=== PATIENT | male | born 1940 | race Caucasian/White ===

== ENCOUNTER 2020-08-28 07:08 | Outpatient (REF) | payer MEDICARE, SELFPAY ==
[2020-08-28 08:59] LABS: Prostate Specific Antigen 1.87 ng/mL (<0.05-4.0)
== END 2020-08-28 07:09 | disposition home or self-care (01) ==
LOC: HO.LAB 07:08
PROVIDERS: Visit Provider Urology
DX: C61 Malignant neoplasm of prostate (principal); Z12.5 Encounter for screening for malignant neoplasm of prostate
CPT/HCPCS: 84153

== ENCOUNTER → 2020-09-03 09:18 | Outpatient (BNVA) | payer MEDICARE, SELFPAY | PROVIDERS: PCP Internal Medicine; Visit Provider Urology | DX: N40.1 Benign prostatic hyperplasia with lower urinary tract symptoms (principal); N13.8 Other obstructive and reflux uropathy; R35.1 Nocturia; C61 Malignant neoplasm of prostate | CPT/HCPCS: 51798; 81002; 99212 ==

== ENCOUNTER 2020-12-16 07:20 | Outpatient (REF) | payer MEDICARE, SELFPAY ==
[2020-12-16 08:14] LABS: Hematocrit 43.4 % (42-52); Hemoglobin 14.2 g/dl (14.0-18.0); Mean Corpuscular HGB Conc 32.7 g/dl (31.0-36.0); Mean Corpuscular Hemoglobin 31.1 pg (27.0-33.0); Mean Corpuscular Volume 95.2 fL (80-98); Mean Platelet Volume 10.4 fL (9.4-12.4); Platelet Count 202 X10*3/uL (160-400); Red Blood Count 4.56 X10*6/uL (4.60-5.80); Red Cell Distribution Width 13.6 % (11.0-16.0); White Blood Count 5.4 X10*3/uL (4.8-10.8)
[2020-12-16 08:44] LABS: Alanine Aminotransferase 14 U/L (0-40); Alkaline Phosphatase 74 U/L (39-117); Anion Gap 12 (12-20); Aspartate Amino Transferase 20 U/L (5-37); Bilirubin Direct 0.2 mg/dL (0.0-0.5); Bilirubin Total 0.7 mg/dL (0.0-1.0); Blood Urea Nitrogen 23 mg/dL (9-16); Calcium 9.1 mg/dL (8.4-10.2); Carbon Dioxide 30 mmol/L (22-29); Chloride 104 mmol/L (96-108); Cholesterol 269 mg/dL; Estimated Glomerular Filt Rate 55; Glucose Random 79 mg/dL (60-115); HDL Cholesterol 37 mg/dL; LDL Cholesterol Calculated 202 mg/dl; Sodium 142 mmol/L (135-145); Total Protein 7.1 g/dL (6.5-8.0); Triglycerides 151 mg/dL
== END 2020-12-16 07:21 | disposition home or self-care (01) ==
LOC: HO.LAB 07:20
PROVIDERS: PCP Internal Medicine; Visit Provider Internal Medicine
DX: E78.00 Pure hypercholesterolemia, unspecified (principal); R97.20 Elevated prostate specific antigen [PSA]
CPT/HCPCS: 36415; 80048; 80061; 80076; 85027

== ENCOUNTER 2021-01-25 09:51 | Outpatient (REF) | payer MEDICARE, SELFPAY ==
[2021-01-25 11:38] LABS: PSA,Total (Free>4and<10) 1.34 ng/mL (0.00-4.00)
== END 2021-01-25 09:52 | disposition home or self-care (01) ==
LOC: HO.LAB 09:51
PROVIDERS: PCP Internal Medicine; Visit Provider Urology
DX: Z12.5 Encounter for screening for malignant neoplasm of prostate (principal); C61 Malignant neoplasm of prostate; N40.1 Benign prostatic hyperplasia with lower urinary tract symptoms; N13.8 Other obstructive and reflux uropathy
CPT/HCPCS: 36415; 84153

== ENCOUNTER → 2021-03-03 14:57 | Outpatient (BNVA) | payer MEDICARE, SELFPAY | PROVIDERS: Visit Provider Urology | DX: Z13.89 Encounter for screening for other disorder (principal) | CPT/HCPCS: Q3014 ==

== ENCOUNTER 2021-06-08 10:51 | Outpatient (REF) | payer MEDICARE, SELFPAY | END 2021-06-08 10:52 | disposition home or self-care (01) | LOC: HO.LAB 10:51 | PROVIDERS: PCP Internal Medicine; Visit Provider Internal Medicine | DX: R10.9 Unspecified abdominal pain (principal) | CPT/HCPCS: 80076 ==

== ENCOUNTER 2021-11-17 06:22 | Outpatient (REF) | payer MEDICARE, SELFPAY ==
[2021-11-17 08:20] LABS: Prostate Specific Antigen 1.93 ng/mL (<0.05-4.0)
== END 2021-11-17 06:23 | disposition home or self-care (01) ==
LOC: HO.LAB 06:22
PROVIDERS: PCP Family Medicine; Visit Provider Urology
DX: Z12.5 Encounter for screening for malignant neoplasm of prostate (principal); N40.1 Benign prostatic hyperplasia with lower urinary tract symptoms; N13.8 Other obstructive and reflux uropathy
CPT/HCPCS: 36415; 84153

== ENCOUNTER → 2021-11-23 07:10 | Outpatient (REF) | payer MEDICARE, SELFPAY ==
--- NOTE | 2021-11-23 07:14 | CA_ITS ---
Transthoracic Echocardiogram Patient (Last, First, Middle): Tim Gallagher, Gender: Male Date of : 1940 Age: 81 Procedure Date: 11/23/2021 Procedure Type: Transthoracic Echocardiogram Location: OP Height: 172.72 cm Weight: 93.44 kg BSA: 2.07 m2 Heart Rate: bpm BP: 134 / 86 mmHg Utilization Management Manager: ARMAND Referring MD: Ana Phillip MD Symptoms: CARDIAC MURMUR Study Quality: Technically Difficult Conclusions: - 1. Normal LV systolic function with mild LVH with grade 1 diastolic dysfunction with underlying regional wall motion abnormality suggestive of coronary artery disease 2. Mild aortic stenosis 3. Normal RV systolic pressure 4. No gross pericardial effusion Findings Left Ventricle Normal left ventricular size and systolic function. There is mildly increased left ventricular wall thickness. The visually estimated ejection fraction is between 55-60%. Spectral Doppler is indicative of an impaired relaxation filling pattern. E/E prime ratio is <8, consistent with normal filling pressures. Evidence suggests grade I (mild) diastolic dysfunction. Wall Motion Rest Echo Findings The basal inferolateral segment is hypokinetic. The basal inferior segment is akinetic. All other scored wall segments showed normal motion. Right Ventricle Normal right ventricular cavity size and systolic function. Atria The left atrium is likely dilated. There is no evidence of interatrial shunt. The right atrium is normal in size. Aortic Valve There is mild calcification of the aortic valve. There is mild thickening of the aortic valve. There is mild aortic valve stenosis. The peak aortic gradient is 18 mmHg.The mean gradient is 10 mmHg. The aortic valve area is 1.60 cm2. There is no aortic valve regurgitation. Mitral Valve There is mild anterior mitral leaflet thickening. There is trace mitral valve regurgitation. There is no mitral valve stenosis. Tricuspid Valve The tricuspid valve was not well visualized. There is mild tricuspid valve regurgitation. The right ventricular systolic pressure is normal. The right ventricular systolic pressure is 27 mmHg. There is no evidence of pulmonary hypertension. Great Vessels All visible segments of the aorta are normal in size. The pulmonary artery was not well visualized. Venous The inferior vena cava is normal in size and collapses greater than 50% with inspiration. Pericardium/Pleural There is no evidence of pericardial effusion. Prior Study Comparison No prior study available for comparison. Measurements 2D Linear Measurements IVSd: 1.28 0.6-0.9/0.6-1.0 cm LVIDd: 4.85 3.9-5.3/4.2-5.9 cm LVIDd Index: 2.34 2.4-3.2/2.2-3.1 cm/m2 LVIDs: 3.87 2.0-3.6 cm LVPWd: 1.00 0.7-1.1 cm Ao Root: 3.90 2.1-3.5 cm LA Diam: 3.80 2.7-3.8/3.0-4.0 cm LAIDs Index: 1.84 1.5-2.3 cm/m2 LV Mass: 258.32 67-162/88-224 g LV Mass Index: 124.79 43-95/49-115 g/m2 LVOT Diam: 2.10 3.0+(-)1.3 cm 2D Systolic Function EF 4C: 57.30 >55% EF 2C: 52.00 >55% EF BiP: 55.20 >55% Mitral Valve MV Pk E: 0.35 MV PK A: 0.91 MV Decel Time: 209.00 E/A: 0.40 E'Lateral: 5.98 E'Medial: 5.55 E/E' Med: 6.30 E/E' Lat: 5.90 PHT: 61.00 MVA PHT: 3.61 Decel Flagler: 1.68 Aortic Valve AoV Pk Ayden: 2.10 AoV Mn Ayden: 1.52 AoV VTI: 0.44 AoV Pk Grad: 18.00 Aov Mn Grad: 10.00 ANATOLIY Cont.VTI: 1.60 LVOT LVOT Pk Ayden: 0.89 LVOT Mn Ayden: 0.66 LVOT VTI: 0.20 LVOT Pk Grad: 3.00 LVOT Mn Grad: 2.00 LVOT Diam: 2.10 LVOT Area: 3.46 Diastolic Function MV Pk E: 0.35 MV Pk A: 0.91 E/A: 0.40 E'Medial: 5.55 E/E' Med: 6.30 E' Laterial: 5.98 E/E' Lat: 5.90 Right Ventricle TAPSE (mm): 24.00 TVS' Ayden: 12.20 Tricuspid Valve TR Pk Ayden: 2.45 TR Pk Grad: 24.00 RA Press: 3.00 RVSP: 27.00 Great Vessels Aorta Ao Root-2D: 3.90 2.0-3.7 cm Ao Asc: 3.60 2.1-3.4 cm Updated in Other Vendor System with Status of Final Sage Moreira MD electronically signed on 11/23/2021 4:05:25 PM with status of Final
== END ==
LOC: HO.CARD 07:10
PROVIDERS: PCP Family Medicine; Visit Provider Family Medicine
DX: R01.1 Cardiac murmur, unspecified (principal)
CPT/HCPCS: 93306

== ENCOUNTER → 2021-11-26 08:28 | Outpatient (BNVA) | payer MEDICARE, SELFPAY | PROVIDERS: PCP Family Medicine; Visit Provider Urology | DX: Z13.89 Encounter for screening for other disorder (principal) | CPT/HCPCS: Q3014 ==

== ENCOUNTER 2022-03-22 13:04 | Outpatient (REF) | payer OTHER, SELFPAY ==
[2022-03-22 14:09] LABS: Blood Urea Nitrogen 24 mg/dL (9-16); Estimated Glomerular Filt Rate 51
== END 2022-03-22 13:05 | disposition home or self-care (01) ==
LOC: HO.LAB 13:04
PROVIDERS: PCP Family Medicine; Visit Provider Urology
DX: Z12.5 Encounter for screening for malignant neoplasm of prostate (principal); C61 Malignant neoplasm of prostate
CPT/HCPCS: 36415; 82565; 84153; 84520

== ENCOUNTER → 2022-03-29 10:53 | Outpatient (BNVA) | payer OTHER, SELFPAY | PROVIDERS: PCP Family Medicine; Visit Provider Urology | DX: C61 Malignant neoplasm of prostate (principal); N40.1 Benign prostatic hyperplasia with lower urinary tract symptoms | CPT/HCPCS: 99212 ==

== ENCOUNTER 2022-08-04 07:17 | Outpatient (REF) | payer OTHER, SELFPAY ==
[2022-08-04 08:11] LABS: Appearance Urine Clear; Color Urine Yellow; Glucose Urine UA Negative (Negative); Leukocyte Esterase Urine Negative (Negative); Nitrite Urine Negative (Negative); Urine Blood Negative (Negative); Urine Ketones Negative (Negative); Urine Protein Negative (Neg-Trace)
[2022-08-04 08:13] LABS: Bacteria Urine None Seen (None Seen); Hyaline Casts Urine 0-2 /LPF (0-2); RBC Urine 0-2 /HPF (0-2); Squamous Epithelial Cell Urine 0-2 /HPF (0-2); WBC Urine 0-5 /HPF (0-5)
== END 2022-08-04 07:18 | disposition home or self-care (01) ==
LOC: HO.LAB 07:17
PROVIDERS: PCP Family Medicine; Visit Provider Urology
DX: N40.1 Benign prostatic hyperplasia with lower urinary tract symptoms (principal)
CPT/HCPCS: 81001; 87086

== ENCOUNTER 2022-09-30 06:44 | Outpatient (REF) | payer OTHER, SELFPAY ==
[2022-09-30 08:24] LABS: PSA,Total (Free>4and<10) 1.71 ng/mL (0.00-4.00)
== END 2022-09-30 06:45 | disposition home or self-care (01) ==
LOC: HO.LAB 06:44
PROVIDERS: PCP Family Medicine; Visit Provider Urology
DX: Z12.5 Encounter for screening for malignant neoplasm of prostate (principal); C61 Malignant neoplasm of prostate; N13.8 Other obstructive and reflux uropathy; N40.1 Benign prostatic hyperplasia with lower urinary tract symptoms
CPT/HCPCS: 36415; 84153

== ENCOUNTER → 2022-10-19 08:23 | Outpatient (BNVA) | payer OTHER, SELFPAY | PROVIDERS: PCP Family Medicine; Visit Provider Urology | DX: N40.0 Benign prostatic hyperplasia without lower urinary tract symptoms (principal); C61 Malignant neoplasm of prostate; Z79.899 Other long term (current) drug therapy | CPT/HCPCS: 51798; 99212 ==

== ENCOUNTER → 2023-01-24 13:04 | Outpatient (BNVA) | payer OTHER, SELFPAY | PROVIDERS: PCP Family Medicine; Visit Provider Urology | DX: N40.1 Benign prostatic hyperplasia with lower urinary tract symptoms (principal); C61 Malignant neoplasm of prostate | CPT/HCPCS: 52000; 99212 ==

== ENCOUNTER → 2023-01-25 07:36 | Outpatient (REF) | payer OTHER, SELFPAY | LOC: HO.CARD 07:36 | PROVIDERS: PCP Family Medicine; Visit Provider Family Medicine | DX: R42 Dizziness and giddiness (principal) | CPT/HCPCS: 93225 ==

== ENCOUNTER 2023-02-17 10:45 | Outpatient (REF) | payer OTHER, SELFPAY ==
--- NOTE | ~2023-02-17 | MR_ITS ---
EXAMINATION: MR BRAIN WITHOUT CONTRAST CLINICAL INFORMATION: Frequent dizzy spells. Affects daily living. Rule out intracranial pathology. COMPARISON: None available. TECHNIQUE: Multiplanar, multisequence imaging of the brain was performed without intravenous contrast. FINDINGS: There is no acute infarction, hemorrhage, mass, or extra-axial fluid collection. A small focus of subacute infarction is seen within the left frontal lobe. Moderate patchy foci of T2/FLAIR hyperintensity are seen within the cerebral white matter, typical of chronic microangiopathy. The ventricles and sulci are commensurate with mild degree of diffuse brain parenchymal volume loss. The major arterial flow voids are preserved at the skull base. There are bilateral lens replacements. MR/MR head/brain wo con IMPRESSION: No acute intracranial abnormality. Small focus of subacute infarction in the left frontal lobe. Background changes of moderate chronic microangiopathy.
== END 2023-02-17 10:46 | disposition home or self-care (01) ==
LOC: HO.MRI 10:45
PROVIDERS: PCP Family Medicine; Visit Provider Family Medicine
DX: R42 Dizziness and giddiness (principal)
CPT/HCPCS: 70551

== ENCOUNTER 2023-04-24 05:55 | Day surgery (SDC) | payer OTHER, SELFPAY ==
[2023-04-20 14:40] VITALS: BMI 32.3
--- NOTE | 2023-04-21 09:35 | P.CONAN_ITS ---
Documented by User: Sana Her NP 04/21/23 09:36 HPI - Anesthesia Eval Consult details Narrative: 82yo M for Laser Ablation Prostate w/Green Light PMFSH Active Problems Active Problems: All Active Problems (Updated 04/20/23 @ 14:44 by Yaquelin Wolff RN) Elevated PSA (Acute) BPH loc w urin obs/LUTS (Acute) Nocturia more than twice per night (Acute) Prostate cancer (Acute) Abdominal pain (Acute) Chronic pain syndrome (Acute) Hypercholesterolemia (Acute) Past Medical History Medical History Asthma Back pain Chronic pain syndrome Glucosuria History of renal calculi Hx of glaucoma Hypercholesterolemia Incomplete emptying of bladder Low back pain Prostate cancer Recurrent UTI Use of cane as ambulatory aid Wears dentures Family History Family History Mother No problems noted. Father No problems noted. Surgical History Surgical History History of lithotripsy Hx of bilateral cataract extraction Hx of colonoscopy Social History Social History Housing: House Are you a primary life care planner to a significant other at home: No Do you presently have visiting nurse or other home services: Yes ([employer] 5 pm-7 pm, VNA 1 x month) Alcohol intake: never Patient Tobacco Use Status: Former Tobacco user Quit Date: 1999 Tobacco use type: Cigarette Use of substances other than those prescribed or required for medical reasons: No Are you DNR?: No Advance Directives: No Advance Directives Information Provided: Yes Advance Directives on File: No Recently lost weight without trying: No Nutrition Risks: Surgical patient >75years service: Yes Current occupational status: retired Meds Allergies Allergy/AdvReac Type Severity Reaction Status Date / Time No Known Allergies Allergy Verified 04/20/23 14:33 [No Known Allergies*] Home Medications Medication Instructions Recorded Confirmed Last Taken Type brimonidine 0.2 % eye drops 1 drp ophthalmic-Right BID 09/03/20 04/20/23 Unknown History albuterol sulfate 90 mcg/actuation 2 puff inhalation Q6-8H PRN 03/08/21 04/20/23 Unknown History aerosol inhaler Shortness Of Breath Or Wheezing aspirin 81 mg chewable tablet 1 tab PO DAILY 03/29/22 04/20/23 Unknown History atorvastatin 80 mg tablet 80 mg PO DAILY 04/20/23 04/20/23 Unknown History sacubitril 24 mg-valsartan 26 mg 1 tab PO BID 04/20/23 04/20/23 Unknown History tablet (Entresto) tramadol 50 mg tablet 50 mg PO TID PRN Pain 04/20/23 04/20/23 Unknown History Exam Exam Date and Time: April 21, 2023 0935 Height,Weight and Vital Signs: Height 5 ft 6 in Weight 90.718 kg Assessment and Plan Assessment Anesthesia Assessment: Chart Reviewed Documented by User: Juan Horton MD 04/24/23 08:14 [facility] Past Medical History Medical History Asthma Back pain Chronic pain syndrome Glucosuria History of renal calculi Hx of glaucoma Hypercholesterolemia Incomplete emptying of bladder Low back pain Prostate cancer Recurrent UTI Use of cane as ambulatory aid Wears dentures Narrative: Echo 01/2023 mild global hypok, ef 40%. mild ddx, mild . RV is OK, PAP normal. IVC nl. On Entresto. Nuclear stress 04/20 negative EKG, probably normal perfusion. Family History Family History Mother No problems noted. Father No problems noted. Family history of problems with anesthesia: No Surgical History Surgical History History of lithotripsy Hx of bilateral cataract extraction Hx of colonoscopy History of Problems with Anesthesia: No Social History Social History Housing: House Are you a primary life care planner to a significant other at home: No Do you presently have visiting nurse or other home services: Yes ([employer] 5 pm-7 pm, VNA 1 x month) Alcohol intake: never Patient Tobacco Use Status: Former Tobacco user Quit Date: 1999 Tobacco use type: Cigarette Use of substances other than those prescribed or required for medical reasons: No Are you DNR?: No Advance Directives: No Advance Directives Information Provided: Yes Advance Directives on File: No Recently lost weight without trying: No Nutrition Risks: Surgical patient >75years service: Yes Current occupational status: retired [employer] Allergies Allergy/AdvReac Type Severity Reaction Status Date / Time No Known Allergies Allergy Verified 04/20/23 14:33 [No Known Allergies*] Home Medications Medication Instructions Recorded Confirmed Last Taken Type brimonidine 0.2 % eye drops 1 drp ophthalmic-Right BID 09/03/20 04/20/23 Unknown History albuterol sulfate 90 mcg/actuation 2 puff inhalation Q6-8H PRN 03/08/21 04/20/23 Unknown History aerosol inhaler Shortness Of Breath Or Wheezing aspirin 81 mg chewable tablet 1 tab PO DAILY 03/29/22 04/20/23 Unknown History atorvastatin 80 mg tablet 80 mg PO DAILY 04/20/23 04/20/23 Unknown History sacubitril 24 mg-valsartan 26 mg 1 tab PO BID 04/20/23 04/20/23 Unknown History tablet (Entresto) tramadol 50 mg tablet 50 mg PO TID PRN Pain 04/20/23 04/20/23 Unknown History Exam Airway Mallampati Class: II TM Dist: >3cm Denture: Upper Partial: Lower Heart: OK. See above. Lungs: OK Assessment and Plan Assessment Anesthesia Assessment: Anesthesia Plan Discussed Final Anesthetic Review Family History of Problems with Anesthesia: No History of Problems with Anesthesia: No NPO: Yes ASA Class: IV Final Preanesthetic Review: No Changes in Pt Med Stat, Meds/Allgs Chart Reviewed, Consent Obtained/Reviewed and Anes Risks/Benef Reviewed Patient Risk: High Procedure Risk: Low Anesthetic Plan Anesthetic Plan: GA and Agree w/ Assess. and Plan Disposition: Standard PACU
[2023-04-24] VITALS (10 sets, daily range): BP systolic 119–185; BP diastolic 72–101; PULSE 62–84; RESP 16–20; TEMP 36.1–36.7; O2SAT 95–98
[2023-04-24] MEDS: Lactated Ringers 1,000 ML 100 ML IVCONT (06:30)
--- NOTE | 2023-04-24 08:58 | P.OP_ITS ---
Operative Note Operative Note Date of Service: 04/24/23 Narrative: PreOperative Diagnosis: Bladder outlet obstruction Post Operative Diagnosis: Bladder outlet obstruction Procedure: GreenLight Laser Enucleation of the prostate Surgeon: Dr Ricky Wilkerson Anesthesia: General Indications for procedure: BPH with symptoms History of bladder outlet obstruction. Treated with alpha-landen and other medications. Still with symptoms. On cystoscopy in office has [trilobar prostate] [tight bladder neck]. Recommen dation for prostate procedure with laser enucleation of prostate. Risks and benefits have been discussed. Focus was placed on development of retrograde ejaculation which is a normal part of this procedure. Procedure: After informed consent was verified the patient was brought to the operating room and placed in a supine position. Anesthesia was administered per protocol. Patient was placed in modified dorsal lithotomy position and prepped and draped in a sterile fashion. Safety pause time-out was confirmed. Antibiotics have been given. A Twenty-four Polish laser cystoscope was inserted per urethra. No abnormalities were found of the anterior and bulbar urethra. The bladder was examined and both ureteric orifices were seen in their normal positions away from the area of interest. Using a GreenLight laser with settings of 80 w incisions were made at the 5 and 7 o'clock position. The incisions were taken down from the bladder neck down to the level of the veru. These were gradually deepened in order to define the lateral aspects of the median lobe area. Once clearly defined they will also extended in the lateral directions in order to create a deep groove. The median lobe was then divided in half and enucleated coming from each side to release tissue into the bladder with the laser power increased to 120 W. He had a Very large median lobe. Consecutive slices were taken running from lateral to medial in order to release the tissue. Knee this took approximately 45 minutes. When completed It appeared that he had minimal lateral lobe impingement. When this was had been completed debris and pieces of prostate were removed from the bladder with irrigation. Both ureteric orifices were reviewed again in shown to be patent in away from any areas of energy damage. The apical area was reviewed in any stray ooze was controlled. A 22 Polish 30 cc balloon Barriga catheter was placed over a stylet into the bladder. Clear efflux was obtained upopn irrigation with a Stephanie piston syringe. 30 cc was placed in the balloon and gentle traction was placed. A snap was used to hold tension on the catheter to control bleeding during patient moved and transported. A drainage bag was placed. Once transportation is complete to the PACU the snap will be removed. The patient tolerated the procedure well, he was extubated in the operating and transferred in a stable condition to the recovery area. Total Power 202 kW Lasing time 27:14 Pathology: Prostate tissue Drains: Barriga catheter
[2023-04-24] MEDS: fentaNYL citrate/PF 100 MCG/2 ML VIAL 50 MCG IVPUSH (09:20)
[2023-04-24] MEDS: oxyCODONE HCl Immed Release 5 MG TABLET PO (09:20)
--- NOTE | 2023-04-24 09:26 | MHC.SHP ---
Pre-Procedural Eval Section A Date of Service: 04/24/23 The patient is an INPATIENT: No Changes since office visit: No Cold of Flu in the past 2 weeks, No New Medical Problems, No Changes in Medication and No Patient answered all questions The History & Physical has been completed within 30 days and I have reviewed it.: No Section B Chief Complaint: Benign prostatic hyperplasia with lower urinary Details of Present Illness: BPH progressive Relevant Social History: None Present Medications: see Short Stay Collaborative assessment Medical History: No relevant PMH History of Previous Operations: No relevant previous surgery Allergies: Allergies Allergy/AdvReac Type Severity Reaction Status Date / Time No Known Allergies Allergy Verified 04/20/23 14:33 [No Known Allergies*] Review of Systems Sugical H&P ROS: Negative: Constitution, Cardiovascular, Respiratory, Neurological, Psychiatric, Hem-Onc, Allergic/Immunologic, Gastrointestinal, Genitourinary, Musculoskeletal, Integumentary, Endocrine and Eyes/Ears/Nose/Throat Exam Surgical H&P Exam: Normal: HEENT, Normal: Heart, Normal: Lungs, Normal: Extremities, Normal: Abdomen, Normal: Skin and Normal: Neurological Plan Diagnosis/Plan: Unchanged ( laser enucleation of the prostate) I have reviewed the history and physical and performed a pertinent physical examination on my patient. No changes have occurred unless specified. Time Spent With Patient Time: Total time managing care of this patient today ____ minutes.
== END 2023-04-24 11:15 | disposition home or self-care (01) ==
PROVIDERS: PCP Family Medicine; Visit Provider Urology
PROC: (CPT 52648; principal; 2023-04-24 07:30)
DX: N40.1 Benign prostatic hyperplasia with lower urinary tract symptoms (principal); N32.0 Bladder-neck obstruction; R35.1 Nocturia; C61 Malignant neoplasm of prostate; R33.9 Retention of urine, unspecified; R81 Glycosuria; G89.4 Chronic pain syndrome; M54.9 Dorsalgia, unspecified; E78.00 Pure hypercholesterolemia, unspecified; J45.909 Unspecified asthma, uncomplicated; Z79.51 Long term (current) use of inhaled steroids; Z79.899 Other long term (current) drug therapy; Z79.82 Long term (current) use of aspirin; Z99.89 Dependence on other enabling machines and devices; Z87.442 Personal history of urinary calculi; Z87.891 Personal history of nicotine dependence
CPT/HCPCS: 52649; 88305; J0131; J1956; J3010

== ENCOUNTER → 2023-04-27 09:28 | Outpatient (BNVA) | payer OTHER, SELFPAY | PROVIDERS: Visit Provider Urology | DX: N40.0 Benign prostatic hyperplasia without lower urinary tract symptoms (principal); R97.20 Elevated prostate specific antigen [PSA] | CPT/HCPCS: 51700 ==

== ENCOUNTER 2023-06-09 08:39 | Outpatient (REF) | payer OTHER, SELFPAY ==
[2023-06-09 10:28] LABS: Prostate Specific Antigen 1.02 ng/mL (<0.05-4.0)
== END 2023-06-09 08:40 | disposition home or self-care (01) ==
LOC: HO.LAB 08:39
PROVIDERS: PCP Family Medicine; Visit Provider Urology
DX: C61 Malignant neoplasm of prostate (principal); Z12.5 Encounter for screening for malignant neoplasm of prostate
CPT/HCPCS: 36415; 84153

== ENCOUNTER 2023-06-16 09:00 | Outpatient (AMB) | payer OTHER, SELFPAY ==
--- NOTE | 2023-06-16 09:01 | MHC.OFFVIS ---
Intake Intake Visit Reasons: 6W PSA/PVR(set) Intake Note: Patient is present for Telephone PSA Follow up Urology Med: Finasteride, Antibiotic Allergy: None Blood Thinner: Aspirin Pharmacy: [facility] Allergies No Known Allergies [No Known Allergies*] Allergy (Verified 06/16/23 09:01) Medication List - Last Reconciled 06/16/23 by Ricky Wilkerson MD albuterol sulfate 90 mcg/actuation 2 puffs inhalation Q6-8H PRN aspirin 1 tab PO DAILY atorvastatin 80 mg PO DAILY brimonidine 0.2% 1 drp ophthalmic-Right BID finasteride 5 mg PO DAILY 90 days fluticasone propionate 250 mcg/actuation (Flovent Diskus) 1 inh PO BID food supplemt, lactose-reduced (Ensure oral liquid) 1 ea PO TID 30 days miscellaneous medical supply 1 ea miscellaneous DIRECTED miscellaneous medical supply 1 ea miscellaneous DIRECTED miscellaneous medical supply 1 ea miscellaneous DIRECTED omeprazole 40 mg PO DAILY sacubitril-valsartan 24-26 mg (Entresto) 1 tab PO BID tramadol 50 mg PO TID PRN HPI HPI Comments History of Present Illness Details Tim is a pleasant male. He is a patient of Dr. Garnica. is here for the following urologic conditions - BPH - prostate cancer Telemedicine Evaluation 15 min Consultation [employer] T[employer] Video attempted Accompanied by daughter who is translating for him Six week follow-up from GreenLight laser PSA 06/21 1.0 Good urination Continue 6 month review Lower Urinary Tract Symptoms: Review in 6m Current visit is for further evaluation of, lower urinary tract symptoms, predominate obstructive symptoms Current treatment includes finasteride 5 mg - 04/21 GreenLight laser Prostate cancer: April 2018 low-grade, low volume disease Prostate cancer was diagnosed in [place] 05/16. Diagnosis was reached by needle biopsy, for elevated PSA. The Maritza grade is April 2018 2/12 cores , 3+3 = 6 20% in each core. TNM Classification of Malignant Tumours (TNM) T1c. The D'Reyna (NCCN) risk category is Low Risk (PSA< 10, Gl < 7, T1c) Imaging - 01/18 MRI total volume 85 cc, left mid transition 1.5 cm PI-RADS 4 lesion, capsule intact Initial therapy included Primary treatment, Deferred Therapy (active surveillance) with finasteride Recent labs included 03/17 2.0, 09/17 1.5 01/16 3.2, 08/18 1.9, 01/17 1.3, 11/20 1.9, 04/20 1.1, 10/20 1.7 Therapeutic plan: Continue with surveillance. [facility] Medical History Asthma Back pain Chronic pain syndrome Glucosuria History of renal calculi Hx of glaucoma Hypercholesterolemia Incomplete emptying of bladder Low back pain Prostate cancer Recurrent UTI Use of cane as ambulatory aid Wears dentures Surgical History History of lithotripsy Hx of bilateral cataract extraction Hx of colonoscopy Family History Mother No problems noted. Father No problems noted. Social History Housing: House Are you a primary intensive care medicine specialist to a significant other at home: No Do you presently have visiting nurse or other home services: Yes ([employer] 5 pm-7 pm, VNA 1 x month) Alcohol intake: never Patient Tobacco Use Status: Former Tobacco user Quit Date: 1999 Tobacco use type: Cigarette service: Yes Current occupational status: retired Review of Systems Const All systems reviewed & are unremarkable except as noted in HPI and below Reports no additional complaints Resp Reports no additional complaints GI Reports no additional complaints Reports as per HPI Musc Reports no additional complaints Physical Exam Telemedicine evaluation Appropriate responses Regular breathing rate and rhythm HEENT Head: Yes normal to inspection Ears: hearing grossly normal bilaterally Eyes General: appearance normal, both eyes and all related structures Neck Neck: Yes normal visual inspection Chest Chest palpation & inspection: normal inspection of the chest Resp Effort & Inspection: normal respiratory effort and able to speak in complete sentences Assessment & Plan Assessment & Plan (1) Prostate cancer: Comment: April 2018 low-grade low volume Maritza 3 + 3 Code(s): C61 - Malignant neoplasm of prostate (2) BPH loc w urin obs/LUTS: Code(s): N40.1 - Benign prostatic hyperplasia with lower urinary tract symptoms Plan Six month follow-up PSA Orders: Orders Prostate Specific Antigen 6 Months C61 - Malignant neoplasm of prostate Medications: Discontinued doxazosin Discontinued Reason: Doctor's Order 8 mg PO BEDTIME 90 tabs 0RF 90 days N40.1 - Benign prostatic hyperplasia with lower urinary tract symptoms Patient Instructions: Imaging studies, laboratory and physical exam results were discussed and reviewed in detail. No major barriers to patient understanding were identified. An opportunity to ask questions regarding the treatment plan was provided. All questions were answered. The patient expressed understanding and agreement with the above treatment plan. The patient is aware they should contact our office by phone for worsening of their current condition or the appearance of new urologic symptoms. Compliance is encouraged with any medications and followup testing that is ordered. It is a privilege to participate in the urologic care of your patient. If you have any questions or concerns regarding treatment for the above conditions, or other urologic issues, please do not hesitate to contact me. The office telephone contact is [phone]. This note is constructed using voice recognition software. While every effort has been made to ensure accuracy contract associate manager errors may have been included. Yours sincerely, Dr Ricky Wilkerson MD, [facility] - Urology Providers of Expert, Compassionate Care for the Genitourinary System Telehealth Telehealth Location of provider rendering services: practice address Location of patient: address on file Patient Identification confirmed using: Name, : Yes Telehealth method: video Patient verbally consented to treatment: Yes Patient verbally consented to billing insurance company: Yes Patient informed of any privacy concerns related to visit: Yes Coding Level of Care Code Tele Est Pt Level 3 (74775) Diagnoses Prostate cancer C61 BPH loc w urin obs/LUTS N40.1
== END 2023-06-16 10:42 | disposition home or self-care (01) ==
LOC: HO.HUSH 09:00
PROVIDERS: PCP Family Medicine; Visit Provider Urology
DX: C61 Malignant neoplasm of prostate (principal); N40.1 Benign prostatic hyperplasia with lower urinary tract symptoms
CPT/HCPCS: 99213

== ENCOUNTER → 2023-06-16 09:00 | Outpatient (BNVA) | payer OTHER, SELFPAY | PROVIDERS: PCP Family Medicine; Visit Provider Urology | DX: C61 Malignant neoplasm of prostate (principal); N40.1 Benign prostatic hyperplasia with lower urinary tract symptoms | CPT/HCPCS: Q3014 ==

== ENCOUNTER 2023-12-14 09:31 | Outpatient (REF) | payer OTHER, SELFPAY ==
[2023-12-14 14:13] LABS: MANUAL DIFF FLAG NO
[2023-12-14 14:22] LABS: Basophils Percent Auto 0.3 % (0-2); Eosinophils Absolute Auto 0.1 X10*3/uL (0.0-0.4); Eosinophils Percent Auto 1.1 % (0-4); Hematocrit 46.1 % (42.0-52.0); Hemoglobin 15.4 g/dl (14.0-18.0); Imm Gran Abs Auto 0.01 X10*3/uL (0.00-0.03); Imm Gran Pct Auto 0.1 % (0.0-0.4); Lymphocytes Absolute Auto 1.4 X10*3/uL (1.2-4.9); Lymphocytes Percent Auto 20.5 % (20-40); Mean Corpuscular HGB Conc 33.4 g/dl (31.0-36.0); Mean Corpuscular Hemoglobin 31.6 pg (27.0-33.0); Mean Corpuscular Volume 94.7 fL (80.0-98.0); Mean Platelet Volume 10.9 fL (9.4-12.4); Monocytes Absolute Auto 0.5 X10*3/uL (0.1-1.2); Monocytes Percent Auto 7.3 % (2-11); Neutrophils Percent Auto 70.7 % (45-73); Platelet Count 224 X10*3/uL (160-400); Red Blood Count 4.87 X10*6/uL (4.60-5.80); Red Cell Distribution Width 12.7 % (11.0-16.0)
[2023-12-14 14:39] LABS: Alanine Aminotransferase 12 U/L (0-40); Albumin Level 3.9 g/dL (3.5-5.0); Alkaline Phosphatase 94 U/L (39-117); Anion Gap 12 (12-20); Aspartate Amino Transferase 17 U/L (5-37); Bilirubin Total 0.7 mg/dL (0.0-1.0); Blood Urea Nitrogen 17 mg/dL (9-16); Calcium 9.2 mg/dL (8.4-10.2); Carbon Dioxide 31 mmol/L (22-29); Chloride 104 mmol/L (96-108); Estimated Glomerular Filt Rate 59; Glucose Random 73 mg/dL (60-115); Potassium 3.7 mmol/L (3.3-5.1); Sodium 143 mmol/L (135-145); Total Protein 6.9 g/dL (6.5-8.0)
== END 2023-12-14 09:32 | disposition home or self-care (01) ==
LOC: HO.CHCLDS 09:31
PROVIDERS: Referring Provider Urology; Visit Provider Family Medicine
DX: C61 Malignant neoplasm of prostate (principal); E66.9 Obesity, unspecified; E78.5 Hyperlipidemia, unspecified; Z68.32 Body mass index [BMI] 32.0-32.9, adult; Z12.5 Encounter for screening for malignant neoplasm of prostate
CPT/HCPCS: 36415; 80053; 84153; 84443; 85025

== ENCOUNTER 2024-01-26 08:37 | Outpatient (AMB) | payer OTHER, SELFPAY ==
--- NOTE | 2024-01-26 08:46 | A.OFFVIS_ITS ---
Intake Intake Visit Reasons: 6M PSA(set) Intake Note: Patient presents today for a follow up on: Meds- Finasteride Allergies to Antibiotic- No Known Allergies Blood Thinner- Aspirin Post Void Residual: 0ml Patient Symptoms: None Production Material Handler Required: No Accompanied by: Self / Same As Patient Allergies No Known Allergies [No Known Allergies*] Allergy (Verified 01/26/24 09:01) Medication List - Last Reconciled 01/26/24 by Ricky Wilkerson MD albuterol sulfate 90 mcg/actuation 2 puffs inhalation Q6-8H PRN aspirin 1 tab PO DAILY atorvastatin 80 mg PO DAILY brimonidine 0.2% 1 drp ophthalmic-Right BID finasteride 5 mg PO DAILY 90 days fluticasone propionate 250 mcg/actuation (Flovent Diskus) 1 inh PO BID food supplemt, lactose-reduced (Ensure oral liquid) 1 ea PO TID 30 days magnesium oxide 400 mg PO DAILY miscellaneous medical supply 1 ea miscellaneous DIRECTED miscellaneous medical supply 1 ea miscellaneous DIRECTED miscellaneous medical supply 1 ea miscellaneous DIRECTED omeprazole 40 mg PO DAILY sacubitril-valsartan 24-26 mg (Entresto) 1 tab PO BID tramadol 50 mg PO TID PRN HPI HPI Comments History of Present Illness Details Tim is a pleasant male. He is a patient of Dr. Garnica. is here for the following urologic conditions - BPH - prostate cancer Accompanied by daughter who is translating for him Six-month follow-up from [facility] and low-grade, low volume prostate cancer PSA 06/21 1.0, 12/23 2.3 Continue finasteride Four month follow-up PSA May benefit from repeat biopsy Lower Urinary Tract Symptoms: Review in 6m Current visit is for further evaluation of, lower urinary tract symptoms, predominate obstructive symptoms Current treatment includes finasteride 5 mg - 04/21 [facility] laser Prostate cancer: April 2018 low-grade, low volume disease Prostate cancer was diagnosed in [place] 05/16. Diagnosis was reached by needle biopsy, for elevated PSA. The [place] grade is April 201812/11 cores , 3+3 = 6 20% in each core. TNM Classification of Malignant Tumours (TNM) T1c. The D'Reyna (NCCN) risk category is Low Risk (PSA< 10, Gl < 7, T1c) Imaging - 01/18 MRI total volume 85 cc, left mid transition 1.5 cm PI-RADS 4 lesion, capsule intact Initial therapy included Primary treatment, Deferred Therapy (active surveillance) with finasteride Recent labs included 03/17 2.0, 09/17 1.5 01/16 3.2, 08/18 1.9, 01/17 1.3, 11/20 1.9, 04/20 1.1, 10/20 1.7 Therapeutic plan: Continue with surveillance. [facility] Medical History History of renal calculi Wears dentures Low back pain Use of cane as ambulatory aid Hx of glaucoma Back pain Asthma Glucosuria Incomplete emptying of bladder Prostate cancer Recurrent UTI Chronic pain syndrome Hypercholesterolemia Surgical History Hx of colonoscopy Hx of bilateral cataract extraction History of lithotripsy Family History Mother No problems noted. Father No problems noted. 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 1 x month) Alcohol intake: never Patient Tobacco Use Status: Former Tobacco user Quit Date: 1999 Tobacco use type: Cigarette service: Yes Current occupational status: retired Review of Systems Const Denies chills and Denies fever(s) Card Reports no additional complaints and Denies syncope Resp Denies cough GI Denies abdominal pain and Denies heartburn Reports as per HPI and Denies change in libido Neuro Denies syncope Psych Denies change in libido Endo Denies change in libido Physical Exam Const General: cooperative, healthy appearing, comfortable and no acute distress Orientation/consciousness: patient oriented x3 HEENT Face and sinus: Yes normal facial exam Mouth: moist mucous membranes Neck Neck: Yes normal visual inspection, Yes full ROM and Yes trachea midline Chest Chest palpation & inspection: normal inspection of the chest Resp Effort & Inspection: normal respiratory effort, able to speak in complete sentences and no respiratory distress GI Inspection: Yes normal to inspection Back/Spine/Pelvis Cervical Spine: normal cervical lordosis Thoracic/Lumbar Spine: thoracic and lumbar spine normal to inspection Skin General skin exam: no rashes or lesions noted Neuro General: patient oriented x3, gait normal, tone normal and moves all extremities Extrem General: Yes normal to inspection and Yes capillary refill normal Office Procedures Post Void Residual Post Residual Void Post Void Residual (PVR): 0 [id number] Void Residual by ultrasound Assessment & Plan Assessment & Plan (1) BPH loc w urin obs/LUTS: Code(s): N40.1 - Benign prostatic hyperplasia with lower urinary tract symptoms (2) Prostate cancer: Comment: April 2018 low-grade low volume Maritza 3 + 3 Code(s): C61 - Malignant neoplasm of prostate Plan Four month follow-up Orders: Orders AMB Post Void Residual by ultrasound Today R33.9 - Retention of urine, unspecified Prostate Specific Antigen 4 Months C61 - Malignant neoplasm of prostate Patient Instructions: Imaging studies, laboratory and physical exam results were discussed and reviewed in detail. No major barriers to patient understanding were identified. An opportunity to ask questions regarding the treatment plan was provided. All questions were answered. The patient expressed understanding and agreement with the above treatment plan. The patient is aware they should contact our office by phone for worsening of their current condition or the appearance of new urologic symptoms. Compliance is encouraged with any medications and followup testing that is ordered. It is a privilege to participate in the urologic care of your patient. If you have any questions or concerns regarding treatment for the above conditions, or other urologic issues, please do not hesitate to contact me. The office telephone contact is [phone]. This note is constructed using voice recognition software. While every effort has been made to ensure accuracy diesel retrofit designer errors may have been included. Yours sincerely, Dr Ricky Wilkerson MD, [facility] - Urology Providers of Expert, Compassionate Care for the Genitourinary System Coding Level of Care Code Est Pt Level 3 (06683) Diagnoses BPH loc w urin obs/LUTS N40.1 Prostate cancer C61 CPT Codes Post Residual Void - PVR CPT Code: 87084-Zvti Void Residual by ultrasound ([id number])
== END 2024-01-26 09:25 | disposition home or self-care (01) ==
PROVIDERS: PCP Family Medicine; Visit Provider Urology
DX: N40.1 Benign prostatic hyperplasia with lower urinary tract symptoms (principal); C61 Malignant neoplasm of prostate
CPT/HCPCS: 99213

== ENCOUNTER → 2024-01-26 08:37 | Outpatient (BNVA) | payer OTHER, SELFPAY | PROVIDERS: PCP Family Medicine; Visit Provider Urology | DX: N40.1 Benign prostatic hyperplasia with lower urinary tract symptoms (principal); R33.8 Other retention of urine; Z85.46 Personal history of malignant neoplasm of prostate; Z79.899 Other long term (current) drug therapy | CPT/HCPCS: 51798; 99212 ==

== ENCOUNTER 2024-06-27 07:18 | Outpatient (REF) | payer OTHER, SELFPAY ==
[2024-06-27 08:36] LABS: Prostate Specific Antigen 0.83 ng/mL (<0.05-4.0)
== END 2024-06-27 07:19 | disposition home or self-care (01) ==
LOC: HO.LAB 07:18
PROVIDERS: PCP Family Medicine; Visit Provider Urology
DX: C61 Malignant neoplasm of prostate (principal); Z12.5 Encounter for screening for malignant neoplasm of prostate
CPT/HCPCS: 36415; 84153

== ENCOUNTER 2024-07-04 11:06 | Outpatient (AMB) | payer OTHER, SELFPAY ==
--- NOTE | 2024-07-04 11:24 | MHC.OFFVIS ---
Intake Visit Reasons: 6M Follow Up- PSA(set) Intake Note: Patient is Present for Follow Up PSA Urology Medication: Finasteride Antibiotic Allergies: None Blood Thinners: Aspirin PSA Completed 06/27/24- PSA 0.83 Architectural Renderer Required: No Senior Network Security Engineer: Senior Network Security Engineer Present Accompanied by: Family/Other Allergies No Known Allergies [No Known Allergies*] Allergy (Verified 07/04/24 11:29) Medication List - Last Reconciled 07/04/24 by Ricky Wilkerson MD albuterol sulfate 90 mcg/actuation 2 puffs inhalation Q6-8H PRN aspirin 1 tab PO DAILY atorvastatin 80 mg PO DAILY brimonidine 0.2% 1 drp ophthalmic-Right BID finasteride 5 mg PO DAILY 90 days fluticasone propionate 250 mcg/actuation (Flovent Diskus) 1 inh PO BID food supplemt, lactose-reduced (Ensure oral liquid) 1 ea PO TID 30 days magnesium oxide 400 mg PO DAILY miscellaneous medical supply 1 ea miscellaneous DIRECTED miscellaneous medical supply 1 ea miscellaneous DIRECTED miscellaneous medical supply 1 ea miscellaneous DIRECTED omeprazole 40 mg PO DAILY sacubitril-valsartan 24-26 mg (Entresto) 1 tab PO BID tramadol 50 mg PO TID PRN HPI Comments Details: Tmi is a pleasant male. He is a patient of Dr. Garnica. is here for the following urologic conditions - BPH - prostate cancer Accompanied by daughter who is translating for him Six-month follow-up low-grade, low volume prostate cancer PSA 06/21 1.0, 12/23 2.3, 06/22 0.8 Good drop in PSA since last visit. February cycle finasteride 1 month on, 1 month off Six-month follow-up tele Lower Urinary Tract Symptoms: Review in 6m Current visit is for further evaluation of, lower urinary tract symptoms, predominate obstructive symptoms Current treatment includes finasteride 5 mg - 04/21 [facility] laser Prostate cancer: April 2018 low-grade, low volume disease Prostate cancer was diagnosed in [place] 05/16. Diagnosis was reached by needle biopsy, for elevated PSA. The [place] grade is April 2018 2/12 cores , 3+3 = 6 20% in each core. TNM Classification of Malignant Tumours (TNM) T1c. The D'Reyna (NCCN) risk category is Low Risk (PSA< 10, Gl < 7, T1c) Imaging - 01/18 MRI total volume 85 cc, left mid transition 1.5 cm PI-RADS 4 lesion, capsule intact Initial therapy included Primary treatment, Deferred Therapy (active surveillance) with finasteride Recent labs included 03/17 2.0, 09/17 1.5 01/16 3.2, 08/18 1.9, 01/17 1.3, 11/20 1.9, 04/20 1.1, 10/20 1.7 Therapeutic plan: Continue with surveillance. [facility] Medical History History of renal calculi Wears dentures Low back pain Use of cane as ambulatory aid Hx of glaucoma Back pain Asthma Glucosuria Incomplete emptying of bladder Prostate cancer Recurrent UTI Chronic pain syndrome Hypercholesterolemia Surgical History Hx of colonoscopy Hx of bilateral cataract extraction History of lithotripsy Family History Mother No problems noted. Father No problems noted. 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, VNA 1 x month) Alcohol intake: never Patient Tobacco Use Status: Former Tobacco user Tobacco use type: Cigarette service: Yes Current occupational status: retired Review of Systems Const Denies chills and Denies fever(s) Card Reports no additional complaints and Denies syncope Resp Denies cough GI Denies abdominal pain and Denies heartburn Reports as per HPI and Denies change in libido Neuro Denies syncope Psych Denies change in libido Endo Denies change in libido Physical Exam Const General: cooperative, healthy appearing, comfortable and no acute distress Orientation/consciousness: patient oriented x3 HEENT Face and sinus: Yes normal facial exam Mouth: moist mucous membranes Neck Neck: Yes normal visual inspection, Yes full ROM and Yes trachea midline Chest Chest palpation & inspection: normal inspection of the chest Resp Effort & Inspection: normal respiratory effort, able to speak in complete sentences and no respiratory distress GI Inspection: Yes normal to inspection Back/Spine/Pelvis Cervical Spine: normal cervical lordosis Thoracic/Lumbar Spine: thoracic and lumbar spine normal to inspection Skin General skin exam: no rashes or lesions noted Neuro General: patient oriented x3, gait normal, tone normal and moves all extremities Extrem General: Yes normal to inspection and Yes capillary refill normal Assessment & Plan Assessment & Plan (1) Prostate cancer: Comment: April 2018 low-grade low volume Maritza 3 + 3 Code(s): C61 - Malignant neoplasm of prostate Category: Medical Plan Six-month follow-up PSA tele Orders: Orders Prostate Specific Antigen 6 Months C61 - Malignant neoplasm of prostate Patient Instructions: Imaging studies, laboratory and physical exam results were discussed and reviewed in detail. No major barriers to patient understanding were identified. An opportunity to ask questions regarding the treatment plan was provided. All questions were answered. The patient expressed understanding and agreement with the above treatment plan. The patient is aware they should contact our office by phone for worsening of their current condition or the appearance of new urologic symptoms. Compliance is encouraged with any medications and followup testing that is ordered. It is a privilege to participate in the urologic care of your patient. If you have any questions or concerns regarding treatment for the above conditions, or other urologic issues, please do not hesitate to contact me. The office telephone contact is [phone]. This note is constructed using voice recognition software. While every effort has been made to ensure accuracy glazier metal furniture errors may have been included. Yours sincerely, Dr Ricky Wilkerson MD, [facility] - Urology Providers of Expert, Compassionate Care for the Genitourinary System Coding Level of Care Code Est Pt Level 3 (02121) Complex EM visit Add On G2211 Diagnoses Prostate cancer C61
== END 2024-07-04 11:55 | disposition home or self-care (01) ==
PROVIDERS: PCP Family Medicine; Visit Provider Urology
DX: C61 Malignant neoplasm of prostate (principal)
CPT/HCPCS: 99213; G2211

== ENCOUNTER → 2024-07-04 11:06 | Outpatient (BNVA) | payer OTHER, SELFPAY | PROVIDERS: PCP Family Medicine; Visit Provider Urology | DX: C61 Malignant neoplasm of prostate (principal); Z79.899 Other long term (current) drug therapy | CPT/HCPCS: 99212 ==

== ENCOUNTER 2025-01-29 09:18 | Outpatient (AMB) | payer OTHER, SELFPAY ==
--- NOTE | 2025-01-29 09:19 | MHC.OFFVIS ---
Intake Visit Reasons: 6m/PSA Intake Note: Patient is present for 6M/PSA Urology Medication:FINASTERIDE Antibiotic Allergy:NONE Blood Thinner:ASPIRIN Financial Foundations Associate Required: No Allergies No Known Allergies [No Known Allergies*] Allergy (Verified 01/29/25 09:19) HPI Comments Details: Tim is a pleasant male. He is a patient of Dr. Garnica. is here for the following urologic conditions - BPH - prostate cancer Telemedicine Evaluation 15 min Consultation Doximity Tariq Video Accompanied by daughter who is translating for him Six-month follow-up low-grade, low volume prostate cancer PSA 06/21 1.0, 12/23 2.3, 06/22 0.8 Good drop in PSA since last visit. February cycle finasteride 1 month on, 1 month off Lower Urinary Tract Symptoms: Review in 6m Current visit is for further evaluation of, lower urinary tract symptoms, predominate obstructive symptoms Current treatment includes finasteride 5 mg - 04/21 [facility] laser Prostate cancer: April 2018 low-grade, low volume disease Prostate cancer was diagnosed in [place] 05/16. Diagnosis was reached by needle biopsy, for elevated PSA. The [place] grade is April 2018 2/ cores , 3+3 = 6 20% in each core. TNM Classification of Malignant Tumours (TNM) T1c. The D'Reyna (NCCN) risk category is Low Risk (PSA< 10, Gl < 7, T1c) Imaging - 01/18 MRI total volume 85 cc, left mid transition 1.5 cm PI-RADS 4 lesion, capsule intact Initial therapy included Primary treatment, Deferred Therapy (active surveillance) with finasteride Recent labs included 03/17 2.0, 09/17 1.5 01/16 3.2, 08/18 1.9, 01/17 1.3, 11/20 1.9, 04/20 1.1, 10/20 1.7 Therapeutic plan: Continue with surveillance. [facility] Medical History History of renal calculi Wears dentures Low back pain Use of cane as ambulatory aid Hx of glaucoma Back pain Asthma Glucosuria Incomplete emptying of bladder Prostate cancer Recurrent UTI Chronic pain syndrome Hypercholesterolemia Surgical History Hx of colonoscopy Hx of bilateral cataract extraction History of lithotripsy Family History Mother No problems noted. Father No problems noted. 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, VNA 1 x month) Alcohol intake: never Patient Tobacco Use Status: Former Tobacco user Tobacco use type: Cigarette service: Yes Current occupational status: retired Review of Systems Const All systems reviewed & are unremarkable except as noted in HPI and below Reports no additional complaints Resp Reports no additional complaints GI Reports no additional complaints Reports as per HPI Musc Reports no additional complaints Physical Exam Telemedicine evaluation Appropriate responses Regular breathing rate and rhythm HEENT Head: Yes normal to inspection Ears: hearing grossly normal bilaterally Eyes General: appearance normal, both eyes and all related structures Neck Neck: Yes normal visual inspection Chest Chest palpation & inspection: normal inspection of the chest Resp Effort & Inspection: normal respiratory effort and able to speak in complete sentences Telehealth Telehealth Location of provider rendering services: practice address Location of patient: address on file Patient Identification confirmed using: Name, : Yes Telehealth method: voice only Patient verbally consented to treatment: Yes Patient verbally consented to billing insurance company: Yes Patient informed of any privacy concerns related to visit: Yes Assessment & Plan Assessment & Plan (1) Prostate cancer: Comment: April 2018 low-grade low volume Maritza 3 + 3 Code(s): C61 - Malignant neoplasm of prostate Category: Medical (2) Nocturia more than twice per night: Code(s): R35.1 - Nocturia Category: Medical Plan Continue finasteride Six-month follow-up PSA Orders: Orders Prostate Specific Antigen 6 Months C61 - Malignant neoplasm of prostate Medications: Refilled finasteride 5 mg PO DAILY 90 tabs 1RF 90 days C61 - Malignant neoplasm of prostate Patient Instructions: This note is constructed using voice recognition software. While every effort has been made to ensure accuracy proposal director errors may have been included. Imaging studies, laboratory and physical exam results were discussed and reviewed in detail. No major barriers to patient understanding were identified. An opportunity to ask questions regarding the treatment plan was provided. All questions were answered. The patient expressed understanding and agreement with the above treatment plan. The patient is aware they should contact our office by phone for worsening of their current condition or the appearance of new urologic symptoms. Compliance is encouraged with any medications and followup testing that is ordered. It is a privilege to participate in the urologic care of your patient. If you have any questions or concerns regarding treatment for the above conditions, or other urologic issues, please do not hesitate to contact me. The office telephone contact is [phone]. Sincerely, Dr Ricky Wilkerson MD, V[facility] - Urology Compassionate Specialist Care for the Genitourinary System Coding Level of Care Code Tele Est Pt Level 3 (19227) Complex EM visit Add On G2211 Diagnoses Prostate cancer C61 Nocturia more than twice per night R35.1
--- OUTSIDE RECORDS SUMMARY | 2025-01-29 10:16 | XMS_ITS | Clinical Summary ---
Author Organization [employer] Address [address] [facility] 7[address] [place] [address] Care Team Providers Care Wreath Inspector Name Role Phone Ana Phillip MD Primary Care Provider [phone] Allergies No known active allergies Medications brimonidine (AlphaGAN P) 0.2 % ophthalmic solution instill 1 drop by ophthalmic route every 12 hours into right eye Active Blood Pressure Monitor [facility] Check blood pressure on arm as directed 12/14/19 24 Active dextran 70-hypromellos e (artificial tears) 0.1-0.3 % ophthalmic solution Administer 1 drop into both eyes if needed in the morning, at noon, and at bedtime for dry eyes. 10 mL 3 04/05/20 24 025 Active aspirin 81 MG chewable tablet Chew 1 tablet (81 mg) Once per day. 90 tablet 3 08/09/20 24 Active atorvastatin (Lipitor) 80 MG tablet TAKE ONE TABLET EVERY MORNING 90 tablet 1 08/16/20 24 Active magnesium oxide (Mag-Ox) 400 MG tabletIndicati ons:Cramp and spasm TAKE ONE TABLET EVERY NIGHT AT BEDTIME 90 tablet 1 08/16/20 24 Active cyanocobalamin (Vitamin B-12) 500 MCG tabletIndicati ons:Cramps, extremity TAKE ONE TABLET EVERY MORNING 90 tablet 1 08/16/20 24 Active Entresto 24-26 MG tablet TAKE ONE TABLET BY MOUTH TWICE DAILY IN THE MORNING AND AT BEDTIME 180 tablet 1 10/17/20 24 Active finasteride (Proscar) 5 MG tablet TAKE ONE TABLET EVERY MORNING 90 tablet 1 10/17/20 24 Active famotidine (Pepcid) 40 MG tablet TAKE ONE TABLET EVERY NIGHT AT BEDTIME 90 tablet 1 11/15/19 25 Active albuterol 108 (90 Base) MCG/ACT inhalerIndicat ions:Obstructi ve lung disease (CMS/HCC) Inhale 2 puffs every 4 (four) hours if needed for wheezing. 18 g 5 11/19/19 25 Active doxazosin (Cardura) 8 MG tablet TAKE ONE TABLET EVERY NIGHT AT BEDTIME 90 tablet 1 12/13/19 25 Active meclizine (Antivert) 25 MG tablet 1 tab po BID 60 tablet 3 12/26/19 25 Active traMADol (Ultram) 50 MG tabletIndicati ons:Chronic pain syndrome Take 2 tablets (100 mg) by mouth every 8 (eight) hours if needed for severe pain. Do not start before January 15, 2025. 168 tablet 01/16/20 25 Active fluticasone furoate (Arnuity Ellipta) 200 MCG/ACT inhaler INHALE 1 PUFF EVERY MORNING. RINSE MOUTH AFTER USE 1 each 01/11/20 25 Active omeprazole (PriLOSEC) [address] capsule TAKE ONE CAPSULE EVERY MORNING BEFORE BREAKFAST 90 capsule 1 01/15/20 25 Active fluticasone furoate (Arnuity Ellipta) 200 MCG/ACT inhaler Inhale 1 puff in the morning. Rinse mouth with water after use to reduce aftertaste and incidence of candidiasis. Do not swallow. 1 each 01/09/20 24 025 Discontinued omeprazole (PriLOSEC) [address] capsule TAKE ONE CAPSULE EVERY MORNING BEFORE BREAKFAST 90 capsule 1 06/24/20 24 025 Discontinued traMADol (Ultram) 50 MG tabletIndicati ons:Chronic pain syndrome Take 2 tablets (100 mg) by mouth every 8 (eight) hours if needed for severe pain. 168 tablet 12/18/19 25 025 Discontinued(Re order (will not trigger notification to Pharmacy)) Active Problems Problem Noted Date Diagnosed Date Dry eyes, bilateral 04/05/2024 Assessment & Plan (04/08/2024 12:48 AM EDT): Pts eyes are watering often. Eyes feel heavy and dry. Prescribed: Dextran 70-hypromellose (artificial tears) 0.1-0.3 % ophthalmic solution Primary hypertension 12/14/2023 Assessment & Plan (12/14/2023 9:32 AM EST): Elevated BP but patient didn't take meds given he has not eaten breakfast. No home monitoring. Target < 140/90 mmHg. At this moment, will recommend monitor and f/up with nursing in 2 weeks. Primary hyperparathyroidism 12/14/2023 Overview (12/14/2023): Aug 20, 2008 Entered By: TAWANDA JASSO Comment: No osteoporosis on DEXA 12/07 No stonesNov 2007 Entered By: TAWANDA JASSO Comment: increase calcium in urine 09/06 (see lab) Gastroesophageal reflux disease 12/14/2023 Disorder of gallbladder 12/14/2023 Physical exam 12/14/2023 Assessment & Plan (12/14/2023 9:31 AM EST): Patient presented for annual physical. Patient is stable, continues with necessity with all his IADLs and majority of ADLs. He has a carrying daughter who lives with him. Requesting a light wheelchair to assist with transport given his arthritis and his heart failure. He has various mobility devices at home. At this point, will be important to re-discuss his code status. Dtr is HCP. Dependent on helper pushing wheelchair Assessment & Plan (12/14/2023 9:15 AM EST): Patient? s clinical condition supports the need for a manual wheelchair because: The patient has a mobility limitation that significantly impairs his ability to participate in one or more mobility-related activities of daily living (MRADL). Medical condition: chronic lumbar back pain, severe arthritis The patient? s mobility limitation cannot be sufficiently resolved by the use of a fitted cane or a walker. Use of a manual wheelchair will significantly improve the patient's ability to participate in MDRALs and patients will use it on a regular basis in the home. The patient has indicated that his home provides adequate access between rooms, maneuvering space, and surfaces for the use of the manual wheelchair. The patient has not expressed unwillingness to use the manual wheelchair. The patient has a caregiver who is available, willing and able to provide assistance with the wheelchair. Patient needs a lightweight wheelchair. (Patient cannot self-propel a standard wheelchair in the home, but can and does propel in a lightweight wheelchair). Class 1 obesity with serious comorbidity and body mass index (BMI) of 32.0 to 32.9 in adult 12/14/2023 Assessment & Plan (12/14/2023 9:33 AM EST): Discussed calorie deficit, recommended reduction of 20-30% of maintenance calories. Recommended to decrease soda and sugary beverage consumption. Recommended at least 20 g per meal of protein to assist with satiety. Asthma 09/01/2023 Assessment & Plan (09/01/2023 9:01 AM EDT): Patient will be prescribe Prednisone to treat asthma discomfort. Cramps, extremity 09/01/2023 Assessment & Plan (09/01/2023 9:02 AM EDT): Patient was advised to treat leg cramps with different medications, therefore, will be treating concern with Vit.B-2 and Magnesium. Nocturia more than twice per night 05/03/2023 Chronic pain syndrome 05/03/2023 Assessment & Plan (09/01/2023 9:03 AM EDT): Will increase Tramadol: 50mg to 100mg. Advised to take 2 tabs instead of 1. Benign localized prostatic h yperplasia with lower urinary tract symptoms (LUTS) 05/03/2023 Abdominal pain 05/03/2023 Hyperlipidemia 05/03/2023 Assessment & Plan (09/01/2023 9:02 AM EDT): -Patient will be sent for Labs: Lipid Panel. Diastolic dysfunction 12/28/2022 Malignant tumor of prostate 12/28/2022 Mild aortic valve stenosis 12/28/2022 Assessment & Plan (04/08/2024 1:02 AM EDT): Pt and pt's daughter were educated on Aortic Stenosis Dx and the possibility of it causing increased SOB. Failure to thrive in adult 12/28/2022 Assessment & Plan (04/08/2024 12:54 AM EDT): Per daughter and patient, they report he has continued poor appetite despite attempts of transitioning him from oral supplementation to whole foods. - Pt has continued to lose weight ( will continue to monitor). -Suggested to increase protein and fat intake. Assessment & Plan (11/01/2023 11:47 AM EST): Per daughter and patient, they report that he has continued with poor appetite despite attempts of transitioning him from oral supplementation to whole foods. Daughter concerned if supplementation was discontinued his functional ability will significantly suffer, at this point will attempt getting supplementation sent, patient and daughter aware that supplier has Boost instead of Ensure. Assessment & Plan (12/28/2022 9:25 AM EST): Per daughter and patient, they report that he has continued with poor appetite despite attempts of transitioning him from oral supplementation to whole foods. Daughter concerned if supplementation was discontinued his functional ability will significantly suffer, at this point will attempt getting supplementation sent, patient and daughter aware that supplier has Boost instead of Ensure. Urinary incontinence 12/28/2022 Assessment & Plan (12/28/2022 9:27 AM EST): Sp prostate CA and surgery he has had continued urinary incontinence, he needs large size pull ups for this, along with use of pad disposable given episodes of leakage especially at night given his limited mobility, he has to use a walker to assist with his MRADL's. Decreased activities of daily living (ADL) 12/28 Assessment & Plan (12/28/2022 9:28 AM EST): Given is poor balance sometimes requires bathing in bed and needs wipes and gloves for daughter to provide this care. Needs wipes Fit Right 68 wipes x8 and large size gloves to help him with bathing and sometimes help with is toileting given he has sometimes accidents. Encounters Date Type Department Care Team Description 01/21/2025 Telephone [facility] MED & PEDS [address] [place], [place] [id number] Ana Phillip MD TC - APPT 01/21/2025 Travel 01/14/2025 Refill [facility] [address] [place] [address] Ana Phillip MD 01/09/2025 Refill [facility] MED[facility] [address] [place] [address] Ana Phillip MD 01/09/2025 Refill [facility] [address] [place] [address] Ana Phillip MD Chronic pain syndrome 12/26/2024 9:30 AM EST Office Visit [facility] [address] [place] [address] Mayra Ahuja MD Vertigo (Primary Dx) 12/26/2024 Travel 12/17/2024 Refill [facility] [address] [place] [address] Ana Phillip MD Chronic pain syndrome 12/13/2024 Refill [facility] [address] [place] [address] Ana Phillip MD 12/12/2024 Telephone [facility] [address] [place] [phone] Ana Phillip MD Appointment Request 12/10/2024 Telephone [facility] [address] [place] [phone] Ana Phillip MD Nurse Triage 11/19/2024 Refill [facility] [address] [place] [phone] Ana Phillip MD Obstructive lung disease ([facility]) 11/19/2024 Refill [facility] [address] [place] [address] Ana Phillip MD Chronic pain syndrome 11/15/2024 Refill [facility] [address] [place] [address] Ana Phillip MD from Last 3 Months Immunizations Name Administration Dates Next Due Influenza High-dose Quadrivalent Preservative Fr ee 09/01/2023,09/01/2021 Influenza injectable quadrivalent preservative f ree 08/21/2018 Influenza, High Dose Seasonal, Preservative Free 08/26/2019,08/21/2018 Influenza, Unspecified 08/20/2008,11/05/2007 PPD Test 02/27/2019 Pneumococcal, Unspecified 11/05/2007,10/30/2007 Td (adult), unspecified 10/30/2006 Tdap 08/27/2018 Social History Tobacco Use Types Packs/Day Years Used Date Smoking Tobacco: Former Cigarettes Passive Smoke Exposure: Never Smokeless Tobacco: Never Tobacco Cessation:Counseling Given: Not Answered Alcohol Use Standard Drinks/Week Comments Never 0 (1 standard drink = 0.6 oz pur e alcohol) Depression Answer Date Recorded Patient Health Questionnaire-9 Score 1 12/26/2024 Patient Health Questionnaire-9 Score 1 12/26/2024 Last PHQ-9: Questionnaire Data Not on file 0 12/26/2024 Housing Stability Answer Date Recorded What is your housing situation today? I have evonnegisele snyder 12/26/[address] you li ve. Do you have problems with any of the following? None of the above 12/26/2024 Food Insecurity Answer Date Recorded Within the past 12 months, y ou worried that your food would run out before you got money to buy more: Never True 12/26/2024 Within the past 12 months,th e food you bought just didn't last and you didn't have enough money to get more: Never True Transportation Answer Date Recorded In the past 12 months, has l ack of transportation kept you from medical appts, meetings, work or from getting things needed for daily living? No 12/26/2024 Utilities Answer Date Recorded In the past 12 months, has t he electric, gas, oil or water company threatened to shut off services in your home? No 12/26/2024 Depression Answer Date Recorded Patient Health Questionnaire-2 Score 0 12/26/2024 Internet Access Answer Date Recorded Internet Access Q1 No 12/26/2024 Internet Access Q2 I do not want or need it 12/01 Sex and Gender Information Value Date Recorded Sex Assigned at Male 08/29/2022 10:39 AM EDT Legal Sex Male 10:39 AM EDT Gender Identity Male 08/29/2022 10:39 AM EDT Sexual Orientation Straight 08/29/2022 10 :39 AM EDT Last Filed Vital Signs Vital Sign Reading Time Taken Comments Blood Pressure 123/82 12/26/2024 9:23 AM EST Pulse 88 12/26/2024 9:23 AM EST Temperature 36.1 ??C (97 ??F) 12/26/2024 9:23 AM EST Respiratory Rate 20 12/26/2024 9:23 AM EST Oxygen Saturation 98% 12/26/2024 9:23 AM EST Inhaled Oxygen Concentration - - Weight 86.2 kg (190 lb) 12/26/2024 9:23 AM EST Height 165.7 cm (5' 5.25 ) 12/26/2024 9:23 AM ES T Body Mass Index 31.38 12/26/2024 9:23 AM EST Plan of Treatment Health Maintenance Due Date Last Done Comments Lipid Panel 1938 Alcohol/Substance Use Screening 1950 Pneumococcal Vaccine: 50+ Years (1 of 2 - PCV) 1957 11/05/2007, 10/30/2007 Zoster Vaccines (1 of 2) 1988 RSV Patients and Patients Aged 60 years or older (1 - 1-dose 75+ series) 2013 COVID-19 Vaccine ( season) 2024 10/15/2021, 01/01/2021, 12/11/2020 Influenza Vaccine (#1) 2024 , 09/01/2021, 08/26/2019, Additional history exists Depression Screening 12/26/2025 12/26/2024, 12/26/19 25 SDOH Screening 12/26/2025 12/26/2024 Tobacco Screening 12/26/2025 12/26/2024 DTaP/Tdap/Td Vaccines (2 - Td or Tdap) 08/27/2028 08/27/2018, 10/30/2006 HIB Vaccines Aged Out No longer eligi ble based on patient's age to complete this topic HPV Vaccines Aged Out No longer eligi ble based on patient's age to complete this topic Hepatitis A Vaccines Aged Out No long er eligible based on patient's age to complete this topic Hepatitis B Vaccines Aged Out No long er eligible based on patient's age to complete this topic IPV Vaccines Aged Out No longer eligi ble based on patient's age to complete this topic Meningococcal Vaccine Aged Out No paul heather eligible based on patient's age to complete this topic RSV under 20 months Aged Out No longe r eligible based on patient's age to complete this topic Rotavirus Vaccines Aged Out No longer eligible based on patient's age to complete this topic Goals Goal Patient Goal Type Associated Problems Recent Progress Patient-Stated? Author Blood Pressure < 140/90 Blood Pressure 123/82( 025 9:23 AM EST) No Sienna Vaca, [place] Insurance - [employer] Care Teams Wreath Inspector Relationship Specialty Start Date End Date Ana Phillip MD [address] [place] [address] PCP - General Family Medicine 09/01/21
--- OUTSIDE RECORDS SUMMARY | 2025-01-29 10:16 | XMS_ITS | Encounter Summary ---
Author Organization [employer] Address [address] [facility] [address] [place] [address] Care Team Providers Care Iron Bender Name Role Phone Ana Phillip MD Primary Care Provider [phone] Reason for Visit * Reason Onset Date Comments Med Refill 06/27/2024 Encounter Details Date Type Department Care Team ([facility] st Contact Info) Description 06/27/2024 Telephone [facility] MEDICINE [address] [place] [address] Ana Phillip MD [address] [place] [address] Med Refill Social History Tobacco Use Types Packs/Day Years Used Date Smoking Tobacco: Former Cigarettes Passive Smoke Exposure: Never Smokeless Tobacco: Never Alcohol Use Standard Drinks/Week Comments Never 0 (1 standard drink = 0.6 oz pur e alcohol) Depression Answer Date Recorded Patient Health Questionnaire-9 Score 7 12/14/2023 Patient Health Questionnaire-9 Score 7 12/14/2023 Last PHQ-9: Questionnaire Data Not on file 0 12/14/2023 Housing Stability Answer Date Recorded What is your housing situation today? I have evonne snyder 08/22/[address] you li ve. Do you have problems with any of the following? None of the above 08/22/2023 Food Insecurity Answer Date Recorded Within the past 12 months, y ou worried that your food would run out before you got money to buy more: Never True 08/22/2023 Within the past 12 months,th e food you bought just didn't last and you didn't have enough money to get more: Never True Transportation Answer Date Recorded In the past 12 months, has l ack of transportation kept you from medical appts, meetings, work or from getting things needed for daily living? No 08/22/2023 Utilities Answer Date Recorded In the past 12 months, has t he electric, gas, oil or water company threatened to shut off services in your home? No 08/22/2023 Depression Answer Date Recorded Patient Health Questionnaire-2 Score 1 12/14/2023 Sex and Gender Information Value Date Recorded Sex Assigned at Male 08/29/2022 10:39 AM EDT Legal Sex Male 10:39 AM EDT Gender Identity Male 08/29/2022 10:39 AM EDT Sexual Orientation Straight 08/29/2022 10 :39 AM EDT documented as of this encounter Miscellaneous Notes * Telephone Encounter - Percy Cisneros - 06/27/2024 1:40 PM EDT TC from pt requesting medication refill. Medications needing refill: traMADol (Ultram) 50 MG tablet To be sent to: [facility] documented in this encounter Plan of Treatment Not on file documented as of this encounter Goals Goal Patient Goal Type Associated Problems Recent Progress Patient-Stated? Author Blood Pressure < 140/90 Blood Pressure 123/82( 025 9:23 AM EST) No Sienna Vaca, PharmD documented as of this encounter Visit Diagnoses Not on filedocumented in this encounter Additional Health Concerns Assessment Noted Time PHQ-9 Depression Total Score: 7 12/14/19 24 8:52 AM EST documented as of this encounter Care Teams Iron Bender Relationship Specialty Start Date End Date Ana Phillip MD [address] [place] [address] PCP - General Family Medicine 09/01/21 documented as of this encounter
--- OUTSIDE RECORDS SUMMARY | 2025-01-29 10:16 | XMS_ITS | Encounter Summary ---
Author Organization [employer] Address [address] [facility] [address] [place] [address] Care Team Providers Care Interior Mechanic Name Role Phone Ana Phillip MD Primary Care Provider [phone] Reason for Visit * Reason Onset Date Comments Nurse Triage 12/10/2024 Encounter Details Date Type Department Care Team ([facility] st Contact Info) Description 12/10/2024 Telephone [facility] MEDICINE [address] [place] [address] Ana Phillip MD [address] [place] [address] Nurse Triage Social History Tobacco Use Types Packs/Day Years [...] encounter Miscellaneous Notes * Telephone Encounter - Patricia King RN - 12/10/2024 3:45 PM EST Triage call with [facility] Research ID [id number], Stefano. Pt daughter Suze answered and reports will speak sinhala for Pt. Contracts Intern remains. Pt has beenhaving some intermittent dizziness last 2 days. Daughter reports Pt is drinking adequate liquids and eating well. Daughter is concerned due to Pt hx of cancer. Pt doesn't have MIKE sx or any overt reason for dizzines. No falls Pt is accompanied by daughter and walker when getting up from sitting/lying down and then ambulating. Pt had been offered apt in [facility] but, requests to be seen by provider in [facility] knowing that PCP is not in for a time. ASK apt with Dr. Perez 12/12/24 @ 930am. Insurance isverified as active prior to booking. Protocol Used: Dizziness (Adult) Protocol-Based Disposition: See in Office or Video Visit within 3 Days Positive Triage Question: * Mild dizziness (e.g., walking normally) and has NOT been evaluated by physician for this (Exception: Dizziness caused by heat exposure, sudden standing, or poor fluid intake.) * All higher-acuity triage questions were negative Care Advice Discussed: * Reasons To Call Back - After 2 hours of rest and fluids and you are still feeling dizzy - You pass out (faint) or are too weak to stand - You become worse * Telephone Encounter - Mejia Varela - 12/10/2024 2:58 PM EST Symptom: Dizziness Outcome: Schedule an urgent appointment (within 4 hours) or talk to a nurse or provider soon Reason: Started within the past 3 days The caller accepted this outcome. Contact pt at [phone] documented in this encounter Plan of Treatment [...] documented as of this encounter Care Teams Interior Mechanic Relationship Specialty Start Date End Date Ana Phillip MD [address] [place] [id number] PCP - General Family Medicine 09/01/21 documented as of this encounter
--- OUTSIDE RECORDS SUMMARY | 2025-01-29 10:16 | XMS_ITS | Encounter Summary ---
Author Organization [employer] Address [address] [facility] [address] [place] [address] Care Team Providers Care Museum Host/Hostess Name Role Phone Ana Phillip MD Primary Care Provider [phone] Reason for Visit * Reason Comments Med Refill Encounter Details Date Type Department Care Team ([facility] st Contact Info) Description 09/30/[address] [facility] PEDS [address] [place], [place] [phone] Ana Phillip MD [address] [place] [address] Social History Tobacco Use Types Packs/Day Years Used Date Smoking Tobacco: Never Passive Smoke Exposure: Never Smokeless Tobacco: Never Alcohol Use Standard Drinks/Week Comments Never 0 (1 standard drink = 0.6 oz pur e alcohol) Depression Answer Date Recorded Patient Health Questionnaire-9 Score 10 12/28/2022 Housing Stability Answer Date Recorded What is [...] Date Recorded Patient Health Questionnaire-2 Score 1 12/28/2022 Sex and Gender Information Value Date Recorded Sex Assigned at Male 08/29/2022 10:39 AM EDT Legal Sex Male 10:39 AM EDT Gender Identity Male 08/29/2022 10:39 AM EDT Sexual Orientation Straight 08/29/2022 10 :39 AM EDT documented as of this encounter Plan of Treatment Not on file documented as of this encounter Visit Diagnoses Not on filedocumented in this encounter Additional Health Concerns Assessment Noted Time PHQ-9 Depression Total Score: 10 023 8:55 AM EST documented as of this encounter Care Teams Museum Host/Hostess Relationship Specialty Start Date End Date Ana Phillip MD [address] [place] [address] PCP - General Family Medicine 09/01/21 documented as of this encounter
--- OUTSIDE RECORDS SUMMARY | 2025-01-29 10:16 | XMS_ITS | Encounter Summary ---
Author Organization [employer] Address [address] [facility] [address] [place] [address] Care Team Providers Care Rn Cardiovascular Name Role Phone Ana Phillip MD Primary Care Provider [phone] Reason for Visit * Reason Onset Date Comments Med Refill 12/25/2023 Encounter Details Date Type Department Care Team ([facility] st Contact Info) Description 12/25/2023 Telephone [facility] MEDICINE [address] [place] [address] Ana Phillip MD [address] [place] [address] Med Refill Social History Tobacco Use Types [...] encounter Miscellaneous Notes * Telephone Encounter - Ramonita Temple - 12/25/2023 9:54 AM EST TC from pt requesting medication refill. Medications needing refill : traMADol (Ultram) 50 MG tablet To be sent to: [facility] [place] [place] - [facility] [address] documented in this encounter Plan of Treatment Not on file documented as of this encounter Visit Diagnoses Diagnosis Chronic pain syndrome documented in this encounter Additional Health Concerns Assessment Noted Time PHQ-9 Depression Total Score: 7 12/14/19 24 8:52 AM EST documented as of this encounter Care Teams Rn Cardiovascular Relationship Specialty Start Date End Date Ana Phillip MD [address] [place] [address] PCP - General Family Medicine 09/01/21 documented as of this encounter
--- OUTSIDE RECORDS SUMMARY | 2025-01-29 10:16 | XMS_ITS | Encounter Summary ---
Author Organization [employer] Address [address] [facility] 7t [place] [address] Care Team Providers Care Cherry Dipper Name Role Phone Ana Phillip MD Primary Care Provider [phone] Reason for Visit * Reason Onset Date Comments Durable Medical Equipment 12/23/2022 Encounter Details Date Type Department Care Team (Late st Contact Info) Description 12/23/2022 Telephone [facility] MEDICINE [address] [place] [address] Ana Phillip MD [address] [place] [address] Durable Medical Equipment Social History Tobacco Use Types Packs/Day Years Used Date Smoking Tobacco: Never Assessed Sex and Gender Information Value Date Recorded Sex Assigned at Male 08/29/2022 10:39 AM EDT Legal Sex Male 10:39 AM EDT Gender Identity Male 08/29/2022 10:39 AM EDT Sexual Orientation Straight 08/29/2022 10 :39 AM EDT documented as of this encounter Miscellaneous Notes * Telephone Encounter - Ana Phillip MD - 12/26/2022 10:51 AM EST As we have discussed before in terms of request of durable medical equipment and feeding supplementation, patient will need an appointment to discuss continued medical necessity of these. She needs to bring the list of request and also we need to document in the visit medical necessity. Of note this needs to be the main reason for visit. I will forward to DME specialist and my [place] to make this appointment, thank you! * Telephone Encounter - Sejal Al LPN - 12/26/2022 9:09 AM EST Please review message below and advise. If agreed please provide DX for request * Telephone Encounter - Nirav Goldman - 12/23/2022 10:52 AM EST Tc from daughter requesting status on scripts for Pull ups xl, ensure milk , wipes, bed bad script was send to be sign. Pt provided grant writer with fax # [phone] documented in this encounter Plan of Treatment Not on file documented as of this encounter Visit Diagnoses Not on filedocumented in this encounter Care Teams Cherry Dipper Relationship Specialty Start Date End Date Ana Phillip MD [address] [place] [address] PCP - General Family Medicine 09/01/21 documented as of this encounter
--- OUTSIDE RECORDS SUMMARY | 2025-01-29 10:16 | XMS_ITS | Encounter Summary ---
Author Organization [employer] Address 75 [facility] 7t [place] [address] Care Team Providers Care Human Resources Mgr Name Role Phone Ana Phillip MD Primary Care Provider [phone] Reason for Visit * Reason Onset Date Comments Med Refill 09/23/2024 Encounter Details Date Type Department Care Team ([facility] st Contact Info) Description 09/23/2024 Telephone [facility] MEDICINE [address] [place] [address] Ana Phillip MD [address] [place] [address] Med Refill Social History Tobacco Use Types [...] encounter Miscellaneous Notes * Telephone Encounter - Mejia Varela - 09/23/2024 8:04 AM EST TC from pt requesting medication refill. Medications needing refill : traMADol (Ultram) 50 MG tablet To be sent to: [facility] - [place], [place] - [address] documented in this encounter Plan of Treatment Not on file documented as of this encounter Goals Goal Patient Goal Type Associated Problems Recent Progress Patient-Stated? Author Blood Pressure < 140/90 Blood Pressure 123/82( 025 9:23 AM EST) No Sienna Vaca, [place] documented as of this encounter Visit Diagnoses Not on filedocumented in this encounter Additional Health Concerns Assessment Noted Time PHQ-9 Depression Total Score: 7 12/14/19 24 8:52 AM EST documented as of this encounter Care Teams Human Resources Mgr Relationship Specialty Start Date End Date Ana Phillip MD 230 [place] [address] PCP - General Family Medicine 09/01/21 documented as of this encounter
--- OUTSIDE RECORDS SUMMARY | 2025-01-29 10:16 | XMS_ITS | Encounter Summary ---
Author Organization [employer] Address [address] [place] [address] 7t [place] [address] Care Team Providers Care Physical Fitness Trainer Name Role Phone Ana Phillip MD Primary Care Provider [phone] Reason for Visit * Reason Comments Med Refill Encounter Details Date Type Department Care Team (Late st Contact Info) Description 05/01/2023 Refill [facility] CHC MED & PEDS 505 [place], [place] [phone] Ana Phillip MD 505 [place], [place] [phone] Other chronic pain Social History Tobacco Use Types Packs/Day Years Used Date Smoking Tobacco: Never Passive Smoke Exposure: Never Smokeless Tobacco: Never Alcohol Use Standard Drinks/Week Comments Never 0 (1 standard drink = 0.6 oz pur e alcohol) Depression Answer Date Recorded Patient Health Questionnaire-9 Score 10 12/28/2022 Depression Answer Date Recorded Patient Health Questionnaire-2 [...] as of this encounter Visit Diagnoses Diagnosis Other chronic pain documented in this encounter Additional Health Concerns Assessment Noted Time PHQ-9 Depression Total Score: 10 023 8:55 AM EST documented as of this encounter Care Teams Physical Fitness Trainer Relationship Specialty Start Date End Date Ana Phillip MD [address] [place] [address] PCP - General Family Medicine 09/01/21 documented as of this encounter
--- OUTSIDE RECORDS SUMMARY | 2025-01-29 10:16 | XMS_ITS | Encounter Summary ---
Author Organization [employer] Address 75 [facility] 7t [place] [address] Care Team Providers Care Social Human Services Assistants Name Role Phone Ana Phillip MD Primary Care Provider [phone] Reason for Visit * Reason Comments Med Refill Encounter Details Date Type Department Care Team (Late st Contact Info) Description 04/15/2024 Refill [facility] CHC MED & PEDS [address] [place], [place] [phone] Ana Phillip MD 505 [place] [address] Chronic pain syndrome Social History Tobacco Use Types Packs/Day Years [...] documented as of this encounter Care Teams Social Human Services Assistants Relationship Specialty Start Date End Date Ana Phillip MD 230 [place] [address] PCP - General Family Medicine 09/01/21 documented as of this encounter
--- OUTSIDE RECORDS SUMMARY | 2025-01-29 10:16 | XMS_ITS | Encounter Summary ---
Author Organization [employer] Address 75 [facility] 7t [place] [address] Care Team Providers Care Boat Designer Name Role Phone Ana Phillip MD Primary Care Provider [phone] Reason for Visit * Reason Onset Date Comments Durable Medical Equipment 02/28/2024 Encounter Details Date Type Department Care Team ([facility] st Contact Info) Description 02/28/2024 Telephone [facility] MEDICINE [address] [place] [address] Ana Phillip MD [address] [place] [address] Durable Medical Equipment Social History Tobacco Use [...] encounter Miscellaneous Notes * Telephone Encounter - Lloyd Mata - 02/28/2024 11:47 AM EDT Tc from the patients daughter requesting the following DME Transport chair Ramp documented in this encounter Plan of Treatment Not on file documented as of this encounter Visit Diagnoses Not on filedocumented in this encounter Additional Health Concerns Assessment Noted Time PHQ-9 Depression Total Score: 7 12/14/19 24 8:52 AM EST documented as of this encounter Care Teams Boat Designer Relationship Specialty Start Date End Date Ana Phillip MD 230 [place] [address] PCP - General Family Medicine 09/01/21 documented as of this encounter
== END 2025-01-29 11:09 | disposition home or self-care (01) ==
LOC: HO.HUSH 09:18
PROVIDERS: PCP Family Medicine; Visit Provider Urology
DX: C61 Malignant neoplasm of prostate (principal); R35.1 Nocturia
CPT/HCPCS: 99213; G2211

== ENCOUNTER → 2025-01-29 09:18 | Outpatient (BNVA) | payer OTHER, SELFPAY | PROVIDERS: PCP Family Medicine; Visit Provider Urology ==

== ENCOUNTER 2025-07-24 09:48 | Outpatient (REF) | payer OTHER, SELFPAY ==
[2025-07-24 11:38] LABS: Prostate Specific Antigen 0.91 ng/mL (<0.05-4.0)
--- OUTSIDE RECORDS SUMMARY | 2025-07-24 11:43 | XMS_ITS | Encounter Summary ---
Author Organization [employer] Address 75 [facility] 7t [place] [address] Care Team Providers Care Jewelry Inspector Name Role Phone Ana Phillip MD Primary Care Provider [phone] Reason for Visit * Reason Comments Med Refill Encounter Details Date Type Department Care Team (Late st Contact Info) Description 04/15/2024 Refill [facility] CHC MED & PEDS 505 [place], [place] [phone] Ana Phillip MD 505 [place] [address] Chronic pain syndrome Social History Tobacco Use [...] housing situation today? I have evonnegisele snyder 08/22/[address] you [...] documented as of this encounter Care Teams Jewelry Inspector Relationship Specialty Start Date End Date Ana Phillip MD [address] [place] [address] PCP - General Family Medicine 09/01/21 documented as of this encounter
--- OUTSIDE RECORDS SUMMARY | 2025-07-24 11:43 | XMS_ITS | Encounter Summary ---
Author Organization [employer] Address [address] [facility] 7t [place] [address] Care Team Providers Care Tack Puller Machine Name Role Phone Ana Phillip MD Primary Care Provider [phone] Reason for Visit * Reason Onset Date Comments Durable Medical Equipment 12/23/2022 Encounter Details Date Type Department Care Team ([facility] st Contact Info) Description 12/23/2022 Telephone [facility] MEDICINE 230 [place] [address] Ana Phillip MD 505 [place] [address] Durable Medical Equipment Social History Tobacco Use [...] was send to be sign. Pt provided procedure writer with fax # [phone] documented in this encounter Plan of Treatment Not on file documented as of this encounter Visit Diagnoses Not on filedocumented in this encounter Care Teams Tack Puller Machine Relationship Specialty Start Date End Date Ana Phillip MD [address] [place] [address] PCP - General Family Medicine 09/01/21 documented as of this encounter
--- OUTSIDE RECORDS SUMMARY | 2025-07-24 11:43 | XMS_ITS | Continuity of Care Document ---
Author Name Zachary Souza Address [address] [place] [address] Organization Unknown Address [address] [place] [address] Medications No known medications Problems No known problems
--- OUTSIDE RECORDS SUMMARY | 2025-07-24 11:43 | XMS_ITS | Encounter Summary ---
Author Organization [employer] Address 75 [facility] 7t [place] [address] Care Team Providers Care Carbon Brush Maker Name Role Phone Ana Phillip MD Primary Care Provider [phone] Reason for Visit * Reason Onset Date Comments Durable Medical Equipment 02/28/2024 Encounter Details Date Type Department Care Team ([facility] st Contact Info) Description 02/28/2024 Telephone [facility] MEDICINE 230 [place] [address] Ana Phillip MD [address] [place] [address] Durable Medical Equipment Social History Tobacco Use [...] documented as of this encounter Care Teams Carbon Brush Maker Relationship Specialty Start Date End Date Ana Phillip MD 230 [place] [address] PCP - General Family Medicine 09/01/21 documented as of this encounter
--- OUTSIDE RECORDS SUMMARY | 2025-07-24 11:43 | XMS_ITS | Encounter Summary ---
Author Organization [employer] Address 75 [facility] 7t [place] [address] Care Team Providers Care Data Communications Engineer Name Role Phone Ana Phillip MD Primary Care Provider [phone] Reason for Visit * Reason Onset Date Comments Med Refill 02/14/2025 Encounter Details Date Type Department Care Team ([facility] st Contact Info) Description 02/14/2025 Telephone [facility] MEDICINE [address] [place] [address] Ana Phillip MD 505 [place] [address] Med Refill Social History Tobacco Use Types [...] housing situation today? I have evonne snyder 12/26/[address] you [...] * Telephone Encounter - Percy Cisneros - 02/14/2025 12:38 PM EDT TC from pt requesting medication refill. Medications needing refill: traMADol (Ultram) 50 MG tablet To be sent to: [facility] - [place], [place] - [facility] [address] documented in this encounter Plan [...] Assessment Noted Time PHQ-9 Depression Total Score: 1 12/26/19 25 9:28 AM EST documented as of this encounter Care Teams Data Communications Engineer Relationship Specialty Start Date End Date Ana Phillip MD 230 [place] [address] PCP - General Family Medicine 09/01/21 documented as of this encounter
--- OUTSIDE RECORDS SUMMARY | 2025-07-24 11:43 | XMS_ITS | Encounter Summary ---
Author Organization [employer] Address 75 [facility] 7t [place] [address] Care Team Providers Care Honey Extractor Name Role Phone Ana Phillip MD Primary Care Provider [phone] Reason for Visit * Reason Onset Date Comments Med Refill 12/25/2023 Encounter Details Date Type Department Care Team ([facility] st Contact Info) Description 12/25/2023 Telephone [facility] MEDICINE 230 [place] [address] Ana Phillip MD 505 [place] [address] Med Refill Social History Tobacco Use Types [...] 50 MG tablet To be sent to: [facility] - [place], [place] - [facility] [address] documented in this encounter Plan of Treatment Not on file documented as of this encounter Visit Diagnoses Diagnosis Chronic pain syndrome documented in this encounter Additional Health Concerns Assessment Noted Time PHQ-9 Depression Total Score: 7 12/14/19 24 8:52 AM EST documented as of this encounter Care Teams Honey Extractor Relationship Specialty Start Date End Date Ana Phillip MD 230 [place] [address] PCP - General Family Medicine 09/01/21 documented as of this encounter
--- OUTSIDE RECORDS SUMMARY | 2025-07-24 11:43 | XMS_ITS | Clinical Summary ---
Author Organization [employer] Address 75 [facility] 7t [place] [address] Care Team Providers Care Mortar Maker Name Role Phone Ana Phillip MD Primary Care Provider [phone] Allergies No known active allergies Medications brimonidine (AlphaGAN P) 0.2 % ophthalmic solution instill 1 drop by ophthalmic route every 12 hours into right eye Active Blood Pressure Monitor [facility] Check blood pressure on arm as directed 12/14/19 24 Active aspirin 81 MG chewable tablet Chew 1 tablet (81 mg) Once per day. 90 tablet 3 08/09/20 24 Active finasteride (Proscar) 5 MG tablet TAKE ONE TABLET EVERY MORNING 90 tablet 1 10/17/20 24 Active albuterol 108 (90 Base) MCG/ACT inhalerIndicat ions:Obstructi ve lung disease (CMS/HCC) Inhale 2 puffs every 4 (four) hours if needed for wheezing. 18 g 5 11/19/19 25 Active doxazosin (Cardura) 8 MG tablet TAKE ONE TABLET EVERY NIGHT AT BEDTIME 90 tablet 1 12/13/19 25 Active meclizine (Antivert) 25 MG tablet 1 tab po BID 60 tablet 3 12/26/19 25 Active fluticasone furoate (Arnuity Ellipta) 200 MCG/ACT inhaler INHALE 1 PUFF EVERY MORNING. RINSE MOUTH AFTER USE 1 each 01/11/20 25 Active atorvastatin (Lipitor) 80 MG tablet TAKE ONE TABLET EVERY MORNING 90 tablet 1 02/21/20 25 Active cyanocobalamin (Vitamin B-12) 500 MCG tabletIndicati ons:Cramps, extremity TAKE ONE TABLET EVERY MORNING 90 tablet 1 02/21/20 25 Active magnesium oxide (Mag-Ox) 400 MG tabletIndicati ons:Cramp and spasm TAKE ONE TABLET EVERY NIGHT AT BEDTIME 90 tablet 1 02/26/20 25 Active famotidine (Pepcid) 40 MG tablet TAKE ONE TABLET EVERY NIGHT AT BEDTIME 90 tablet 1 05/07/20 25 Active Entresto 24-26 MG tablet TAKE ONE TABLET TWICE DAILY IN THE MORNING AND AT BEDTIME 180 tablet 1 05/08/20 25 Active omeprazole (PriLOSEC) [address] capsule TAKE ONE CAPSULE EVERY MORNING BEFORE BREAKFAST 90 capsule 1 06/17/20 25 Active traMADol (Ultram) 50 MG tabletIndicati ons:Chronic pain syndrome Take 2 tablets (100 mg) by mouth every 8 (eight) hours if needed for severe pain. Do not start before July 17, 2025. 168 tablet 07/17/20 25 Active traMADol (Ultram) 50 MG tabletIndicati ons:Chronic pain syndrome Take 2 tablets (100 mg) by mouth every 8 (eight) hours if needed for severe pain. 168 tablet 06/17/20 25 025 Discontinued Active Problems Problem Noted Date Diagnosed Date Osteoarthritis of hips, bilateral 05/08/2025 Dry eyes, bilateral 04/05/2024 Assessment & Plan [...] Assessment & Plan (12/14/2023 9:15 AM EST): Patient s clinical condition supports the need for a manual wheelchair because: The patient has a mobility limitation that significantly impairs his ability to participate in one or more mobility-related activities of daily living (MRADL). Medical condition: chronic lumbar back pain, severe arthritis The patient s mobility limitation cannot be sufficiently resolved [...] is toileting given he has sometimes accidents. Resolved Problems Problem Noted Date Diagnosed Date Resolved Date Chronic pain of both hips 05/08/2025 Encounters Date Type Department Care Team Description 07/24/2025 Orders Only GENERIC EXTERNAL DATA DEPARTMENT Provider, Generic External Data 07/14/2025 Refill [facility] MED & PEDS [address] [place] [address] Ana Phillip MD Chronic pain syndrome 07/14/2025 Telephone [facility] PED[facility] [address] [place] [address] Ana Phillip MD Med Refill 06/17/2025 Refill [facility] MED & PEDS [address] [place] [address] Ana Phillip MD Chronic pain syndrome 05/13/2025 Telephone [facility] MEDICINE [address] [place], [place] [phone] Ana Phillip MD Durable Medical Equipment 05/13/2025 Refill [facility] MEDICINE [address] [place] [address] Ana Phillip MD Chronic pain syndrome 05/07/2025 Refill [facility] CHC MED & PEDS [address] [place], [place] [phone] Ana Phillip MD 05/05/2025 Refill [facility] CHC MED & PEDS [address] [place], [place] [phone] Ana Phillip MD from Last 3 Months Immunizations Immunization Administration Dates Next Due Influenza High-dose Quadrivalent [...] 88 12/26/2024 9:23 AM EST Temperature 36.1 C (97 F) 12/26/2024 9:23 AM EST Respiratory Rate 20 [...] 75+ series) 2013 COVID-19 Vaccine ( season) 2025 10/15/2021, 01/01/2021, 12/11/2020 Influenza Vaccine (#1) 2025 , 09/01/2021, 08/26/2019, Additional history exists Depression Screening 12/26/2025 12/26/2024, 12/26/19 SDOH Screening 12/26/2025 12/26/2024 Tobacco Screening 12/26/2025 [...] patient's age to complete this topic Meningococcal B Vaccine Aged Out No l onger eligible based on patient's age to complete [...] 123/82( 025 9:23 AM EST) No Sienna Vaca PharmD Procedures Procedure Name Priority Date/Time Associated Diagnosis Comments PSA, TOTAL Routine 07/24/2025 9:58 AM EDT from Last 3 Months Results * PSA,Total (07/24/2025 9:58 AM EDT) Prostate Specific Antigen 0.91 <0.05 - 4.0 ng/mL [facility] Comment:PSA methodology: Nadia Dow i ChemiluminescentMicroparticle Immunoassay (CMIA) 07/24/2025 9:58 AM EDT 07/24/2025 9:58 AM EDT us Generic External Data Provider LAB BLOOD ORDERAB LES Final Result [facility] [address] [place] [phone] from Last 3 Months Insurance [facility] [employer] (HMO D-SNP) FUNMI GARZA [id number] Care Teams Mortar Maker Relationship Specialty Start Date End Date Ana Phillip MD [address] [place] [address] PCP - General Family Medicine 09/01/21
--- OUTSIDE RECORDS SUMMARY | 2025-07-24 11:43 | XMS_ITS | Encounter Summary ---
Author Organization [employer] Address 75 [facility] 7t [place] [address] Care Team Providers Care Environmental Engineering Assistant Name Role Phone Ana Phillip MD Primary Care Provider Reason for Visit * Reason Onset Date Comments Nurse Triage 12/10/2024 Encounter Details Date Type Department Care Team ([facility] st Contact Info) Description 12/10/2024 Telephone [facility] MEDICINE [address] [place] [address] Ana Phillip MD 505 [place] [address] Nurse Triage Social History Tobacco Use Types [...] 12/10/2024 3:45 PM EST Triage call with [facility] Traffic Rate Clerk [place] [id number], [place]. Pt daughter Suze answered and reports will speak mongolian for Pt. Lithographic General Worker remains. Pt has beenhaving some intermittent dizziness [...] ambulating. Pt had been offered apt in [facility] but, requests to be seen by provider in [facility] knowing that PCP is not in for [...] caller accepted this outcome. Contact pt at [phone] documented in this encounter Plan of Treatment [...] documented as of this encounter Care Teams Environmental Engineering Assistant Relationship Specialty Start Date End Date Ana Phillip MD [address] [place] [address] PCP - General Family Medicine 09/01/21 documented as of this encounter
--- OUTSIDE RECORDS SUMMARY | 2025-07-24 11:43 | XMS_ITS | Encounter Summary ---
Author Organization [employer] Address 75 [facility] 7t [place] [address] Care Team Providers Care Compound Worker Name Role Phone Ana Phillip MD Primary Care Provider [phone] Encounter Details Date Type Department Care Team ([facility] st Contact Info) Description 07/24/2025 Orders Only GENERIC EXTERNAL DATA DEPARTMENT Provider, Generic External Data Social History Tobacco Use Types Packs/Day Years [...] Vaca, Jordan documented as of this encounter Procedures Procedure Name Priority Date/Time Associated Diagnosis Comments PSA, TOTAL Routine 07/24/2025 9:58 AM EDT documented in this encounter Results * PSA,Total (07/24/2025 9:58 AM EDT) Prostate Specific Antigen 0.91 <0.05 - 4.0 ng/mL [facility] Comment:PSA methodology: Nadia Dow i ChemiluminescentMicroparticle Immunoassay (CMIA) 07/24/2025 9:58 AM EDT 07/24/2025 9:58 AM EDT us Generic External Data Provider LAB BLOOD ORDERAB LES Final Result [facility] [address] [place] [phone] documented in this encounter Visit Diagnoses Not on filedocumented in this encounter Additional Health Concerns Assessment Noted Time PHQ-9 Depression Total Score: 1 12/26/19 9:28 AM EST documented as of this encounter Care Teams Compound Worker Relationship Specialty Start Date End Date Ana Phillip MD [address] [place] [address] PCP - General Family Medicine 09/01/21 documented as of this encounter
--- OUTSIDE RECORDS SUMMARY | 2025-07-24 11:43 | XMS_ITS | Encounter Summary ---
Author Organization [employer] Address 75 [facility] 7t [place] [address] Care Team Providers Care Hand Fretted Instrument Maker Name Role Phone Ana Phillip MD Primary Care Provider [phone] Reason for Visit * Reason Onset Date Comments Med Refill 06/27/2024 Encounter Details Date Type Department Care Team ([facility] st Contact Info) Description 06/27/2024 Telephone [facility] MEDICINE [address] [place] [address] Ana Phillip MD [address] [place] [address] Med Refill Social History Tobacco Use Types [...] 50 MG tablet [facility] documented in this encounter Plan of [...] documented as of this encounter Care Teams Hand Fretted Instrument Maker Relationship Specialty Start Date End Date Ana Phillip MD [address] [place] [address] PCP - General Family Medicine 09/01/21 documented as of this encounter
--- OUTSIDE RECORDS SUMMARY | 2025-07-24 11:43 | XMS_ITS | Encounter Summary ---
Author Organization [employer] Address 75 [facility] 7t [place] [address] Care Team Providers Care Tester Operator Name Role Phone Ana Phillip MD Primary Care Provider [phone] Reason for Visit * Reason Comments Med Refill Encounter Details Date Type Department Care Team (Late st Contact Info) Description 05/01/2023 Refill [facility] MED & PEDS 505 [place], [place] [phone] Ana Phillip MD 505 [place], [place] [phone] Other chronic pain Social History Tobacco Use [...] documented as of this encounter Care Teams Tester Operator Relationship Specialty Start Date End Date Ana Phillip MD [address] [place] [address] PCP - General Family Medicine 09/01/21 documented as of this encounter
--- OUTSIDE RECORDS SUMMARY | 2025-07-24 11:43 | XMS_ITS | Encounter Summary ---
Author Organization [employer] Address [address] [facility] 7t [place] [address] Care Team Providers Care Librarian Helper Name Role Phone Ana Phillip MD Primary Care Provider [phone] Reason for Visit * Reason Onset Date Comments Med Refill 09/23/2024 Encounter Details Date Type Department Care Team ([facility] st Contact Info) Description 09/23/2024 Telephone [facility] MEDICINE [address] [place] [address] Ana Phillip MD [address] [place] [address] Med Refill Social History Tobacco Use Types [...] 50 MG tablet To be sent to: [facility] - [place], [place] - [address] documented in [...] documented as of this encounter Care Teams Librarian Helper Relationship Specialty Start Date End Date Ana Phillip MD [address] [place] [address] PCP - General Family Medicine 09/01/21 documented as of this encounter
--- OUTSIDE RECORDS SUMMARY | 2025-07-24 11:43 | XMS_ITS | Encounter Summary ---
Author Organization [employer] Address [address] [facility] 7t [place] [address] Care Team Providers Care Director Of Community Center Name Role Phone Ana Phillip MD Primary Care Provider [phone] Reason for Visit * Reason Onset Date Comments Med Refill 03/17/2025 Encounter Details Date Type Department Care Team ([facility] st Contact Info) Description 03/17/2025 Telephone [facility] MEDICINE [address] [place] [address] Ana Phillip MD [address] [place] [address] Med Refill Social History Tobacco Use Types [...] encounter Miscellaneous Notes * Telephone Encounter - Marta Rodríguez - 03/17/2025 10:32 AM EDT TC from pt requesting medication refill. Medications needing refill : traMADol (Ultram) 50 MG tablet [facility] be [facility] to: [facility] documented in this encounter Plan of Treatment [...] documented as of this encounter Care Teams Director Of Community Center Relationship Specialty Start Date End Date Ana Phillip MD [address] [place] [address] PCP - General Family Medicine 09/01/21 documented as of this encounter
--- OUTSIDE RECORDS SUMMARY | 2025-07-24 11:43 | XMS_ITS | Encounter Summary ---
Author Organization [employer] Address [address] [facility] 7t [place] [address] Care Team Providers Care Sales Marketing Director Name Role Phone Ana Phillip MD Primary Care Provider Reason for Visit * Reason Comments Med Refill Encounter Details Date Type Department Care Team ([facility] st Contact Info) Description 09/30/2023 Refill [facility] MED & PEDS [address] [place], [place] [phone] Ana Phillip MD [address] [place] [address] Social History Tobacco Use Types Packs/Day Years [...] documented as of this encounter Care Teams Sales Marketing Director Relationship Specialty Start Date End Date Ana Phillip MD [address] [place] [address] PCP - General Family Medicine 09/01/21 documented as of this encounter
--- OUTSIDE RECORDS SUMMARY | 2025-07-24 11:43 | XMS_ITS | Encounter Summary ---
Author Organization [facility] Address [address] [facility] [address] [place] [address] Encounters * CPT with Zachary Souza at [employer] on 2025-04-04 { reasonForRequest : Stated father fell and wants to be assessed, pt has also had a cold for more than two weeks , patientReports : Cough, fever greater than 2 days; History of asthma, increased use of inhaler; Sputum increase ; Cough; Shortness of breath with exertion , denies :[ Falls with head strike and LOC , Falls from a standing position, no LOC, patient is amnestic to the event , Falls with isolated injury and deformity noted to limb , Falls with inability to move post fall , Cool extremities after fall or injury , Weakness with fall, able to move all extremities , Increased work of breathing/labored with or without fever , Unable to speak in full sentences without distress , Discoloration of skin -cyanosis , Needs to sleep sitting up, can t catch breath , Shortness of breath in setting of confusion , COPD", Pain with inspiration ], chiefComplaints : Common Cold, Falls ,"pmh : Cancer, Gastroesophageal Reflux Disease (GERD), Congestive Heart Failure ,&q uot;allergies : No Known Drug Allergies , otherAllergies : ,&quo t;painAssessment : , visitOutcome : , additionalComments": 84 y.o male complains of Common Cold, Falls\n\nDaughter calling for the patient who fell yesterday. He was sleeping and fell out of the bed due to a dream. He did not hit his head or having any pains. \nHe is not on blood thinners. \nHe has had a cold for 2 weeks. He has a cough, congested, but cant expel it. \nHe is not having any fever or chills / nausea / vomiting. He has been eating and drinking, no body aches or headaches. He was getting OTC but it did not help. \nHe does have mild sob, she stated that it is his heart. \nHe does not have lower ext edema \nPMH prostate cancer. >he is on entresto for CHF\nI provided information on the mobile health provider response time and advised the patient and/or caregiver to monitor reported signs and symptoms. I discussed the warning signs of when to seek emergency care. } Pt chief complaint today of a persistent cough that has been lingering for approx 14 days. Pt states that his cough is non productive and that he is not feeling any level of facial pressure or pain as well as ear ache or sinus pressure. Pt notes he does not believe he has been around anyone who he knows is actively sick. Pt is only member in his home who is sick. Pt today is Looking to acquire a general assessment as well as possible treatment, pt denies any cp, active sob, NVD, dizziness as well as blurred vision, fever or chills. Pt allergies noted as nkda in allergies tab. Pt has been using Tylenol, as well as Vicks and robitussin with very minimal positive effect. Non neural focal exam, afebrile ( Tylenol has been used early in the morning),vitals are WNL for the baseline of the pt. Lungs present as clear bilaterally however slightly diminished in the lower lobes. Benign abdominal assessment as well as no lower extremity edema is noted. Pt has been bed bound since signs and symptoms have been present. Pt is CAOX4 with a GCS of 15. Positive csm in all extremities. Covid/flu test taken with a negative reading. [facility] Zachary Souza consulted. Pt and family are inform that due to negative covid/ flu findings the pt could very well have a director long term care cold. Pt encouraged to increase fluid intake as well as use nasal saline products and guaifenesin. Pt and family informed to call pcp for potential follow up as needed. All parties educated on red flag S&S and told to call emergency services if any present. IV_(FLUIDS_AND/OR_MEDICATION), MEDICATION_IM, EKG, POC_BLOODWORK, GLUCOSE, ORTHOSTATIC_VITAL_SIGNS Written by Zachary Souza on 2025-04-04
== END 2025-07-24 09:49 | disposition home or self-care (01) ==
LOC: HO.LAB 09:48
PROVIDERS: PCP Family Medicine; Visit Provider Urology
DX: Z12.5 Encounter for screening for malignant neoplasm of prostate (principal); C61 Malignant neoplasm of prostate
CPT/HCPCS: 36415; 84153

== ENCOUNTER 2025-08-01 08:33 | Outpatient (AMB) | payer OTHER, SELFPAY ==
--- NOTE | 2025-08-01 08:38 | MHC.OFFVIS ---
Intake Visit Reasons: 6m/ PSA Intake Note: patient presents today for: 6mo follow up urology medications: finasteride, tramadol blood thinners: aspirin labs done 07/24/25: PSA 0.91 Awake Overnight Monitor Required: Yes Awake Overnight Monitor Services: Awake Overnight Monitor Present Accompanied by: Daughter Allergies No Known Allergies (No Known Allergies*) Allergy (Verified 08/01/25 08:39) HPI Comments Details: Tim is a pleasant male. He is a patient of Dr. Garnica. is here for the following urologic conditions - BPH - prostate cancer Accompanied by daughter who is translating for him Six-month follow-up low-grade, low volume prostate cancer PSA 06/21 1.0, 12/23 2.3, 06/22 0.8, 07/24 0.9 Finds urinary performance is significantly improved when remains on finasteride Continue six-month surveillance Lower Urinary Tract Symptoms: Review in 6m Current visit is for further evaluation of, lower urinary tract symptoms, predominate obstructive symptoms Current treatment includes finasteride 5 mg - 04/21 Green[employer] laser Prostate cancer: April 2018 low-grade, low volume disease Prostate cancer was diagnosed in [place] 05/16. Diagnosis was reached by needle biopsy, for elevated PSA. The Maritza grade is April 2018 2/12 cores , 3+3 = 6 20% in each core. TNM Classification of Malignant Tumours (TNM) T1c. The D'Reyna (NCCN) risk category is Low Risk (PSA< 10, Gl < 7, T1c) Imaging - 01/18 MRI total volume 85 cc, left mid transition 1.5 cm PI-RADS 4 lesion, capsule intact Initial therapy included Primary treatment, Deferred Therapy (active surveillance) with finasteride Recent labs included 03/17 2.0, 09/17 1.5 01/16 3.2, 08/18 1.9, 01/17 1.3, 11/20 1.9, 04/20 1.1, 10/20 1.7 Therapeutic plan: Continue with surveillance. [facility] Medical History History of renal calculi Wears dentures Low back pain Use of cane as ambulatory aid Hx of glaucoma Back pain Asthma Glucosuria Incomplete emptying of bladder Prostate cancer Recurrent UTI Chronic pain syndrome Hypercholesterolemia Surgical History Hx of colonoscopy Hx of bilateral cataract extraction History of lithotripsy Family History Mother No problems noted. Father No problems noted. Social History Housing: House Are you a primary hospice patient care secretary to a significant other at home: No Do you presently have visiting nurse or other home services: Yes (TICKET DISPATCHER 5 pm-7 pm, VNA 1 x month) Alcohol intake: never Patient Tobacco Use Status: Former Tobacco user Tobacco use type: Cigarette service: Yes Current occupational status: retired Review of Systems Const Denies chills and Denies fever(s) Card Reports no additional complaints and Denies syncope Resp Denies cough GI Denies abdominal pain and Denies heartburn Reports as per HPI and Denies change in libido Neuro Denies syncope Psych Denies change in libido Endo Denies change in libido Physical Exam Const General: cooperative, healthy appearing, comfortable and no acute distress Orientation/consciousness: patient oriented x3 HEENT Face and sinus: Yes normal facial exam Mouth: moist mucous membranes Neck Neck: Yes normal visual inspection, Yes full ROM and Yes trachea midline Chest Chest palpation & inspection: normal inspection of the chest Resp Effort & Inspection: normal respiratory effort, able to speak in complete sentences and no respiratory distress GI Inspection: Yes normal to inspection Back/Spine/Pelvis Cervical Spine: normal cervical lordosis Thoracic/Lumbar Spine: thoracic and lumbar spine normal to inspection Skin General skin exam: no rashes or lesions noted Neuro General: patient oriented x3, gait normal, tone normal and moves all extremities Extrem General: Yes normal to inspection and Yes capillary refill normal Assessment & Plan Assessment & Plan (1) Prostate cancer: Comment: April 2018 low-grade low volume Maritza 3 + 3 Code(s): C61 - Malignant neoplasm of prostate Category: Medical (2) BPH loc w urin obs/LUTS: Code(s): N40.1 - Benign prostatic hyperplasia with lower urinary tract symptoms Category: Medical (3) Nocturia more than twice per night: Code(s): R35.1 - Nocturia Category: Medical Plan Six-month follow-up PSA Orders: Orders Prostate Specific Antigen 6 Months C61 - Malignant neoplasm of prostate Medications: Refilled finasteride 5 mg PO DAILY 90 tabs 1RF 90 days C61 - Malignant neoplasm of prostate Patient Instructions: This note is constructed using voice recognition software. While every effort has been made to ensure accuracy propulsion systems engineer errors may have been included. Imaging studies, laboratory and physical exam results were discussed and reviewed in detail. No major barriers to patient understanding were identified. An opportunity to ask questions regarding the treatment plan was provided. All questions were answered. The patient expressed understanding and agreement with the above treatment plan. The patient is aware they should contact our office by phone for worsening of their current condition or the appearance of new urologic symptoms. Compliance is encouraged with any medications and followup testing that is ordered. It is a privilege to participate in the urologic care of your patient. If you have any questions or concerns regarding treatment for the above conditions, or other urologic issues, please do not hesitate to contact me. The office telephone contact is [phone]. Sincerely, Dr Ricky Wilkerson MD, [facility] - Urology Compassionate Specialist Care for the Genitourinary System Coding Level of Care Code Est Pt Level 3 (95355) Complex EM visit Add On G2211 Diagnoses Prostate cancer C61 BPH loc w urin obs/LUTS N40.1 Nocturia more than twice per night R35.1
--- OUTSIDE RECORDS SUMMARY | 2025-08-01 08:54 | XMS_ITS | Encounter Summary ---
Author Organization [employer] Address [address] [facility] 7t [place] [address] Care Team Providers Care Acetylene Torch Burner Name Role Phone Ana Phillip MD Primary Care Provider [phone] Reason for Visit * Reason Onset Date Comments Med Refill 06/27/2024 Encounter Details Date Type Department Care Team ([facility] st Contact Info) Description 06/27/2024 Telephone [facility] MEDICINE [address] [place] [address] Ana Phillip MD [address] [place] [address] Med Refill Social History Tobacco Use Types [...] 50 MG tablet To be sent to: [facility] documented in this encounter Plan [...] documented as of this encounter Care Teams Acetylene Torch Burner Relationship Specialty Start Date End Date Ana Phillip MD [address] [place] [address] PCP - General Family Medicine 09/01/21 documented as of this encounter
--- OUTSIDE RECORDS SUMMARY | 2025-08-01 08:54 | XMS_ITS | Clinical Summary ---
Author Organization [employer] Address [address] [facility] 7t [place] [address] Care Team Providers Care Controller Mechanic Name Role Phone Ana Phillip MD Primary Care Provider [phone] Allergies No known active allergies Medications brimonidine (AlphaGAN P) 0.2 % ophthalmic solution instill 1 drop by ophthalmic route every 12 hours into right eye Active Blood Pressure Monitor [facility] Check blood pressure on arm as directed 12/14/19 24 Active aspirin 81 MG chewable tablet Chew 1 tablet (81 mg) Once per day. 90 tablet 3 08/09/20 24 Active finasteride (Proscar) 5 MG tablet TAKE ONE TABLET EVERY MORNING 90 tablet 1 10/17/20 24 Active albuterol 108 (90 Base) MCG/ACT inhalerIndicat ions:Obstructi ve lung disease (CMS/HCC) (HCC) Inhale 2 puffs every 4 (four) hours if needed for wheezing. 18 g 5 11/19/19 25 Active meclizine (Antivert) 25 MG tablet 1 tab po BID 60 tablet 3 12/26/19 25 Active fluticasone furoate (Arnuity Ellipta) 200 MCG/ACT inhaler INHALE 1 PUFF EVERY MORNING. RINSE MOUTH AFTER USE 1 each 11 01/11/20 25 Active atorvastatin (Lipitor) 80 MG tablet TAKE ONE TABLET EVERY MORNING 90 tablet 1 02/21/20 25 Active cyanocobalamin (Vitamin B-12) 500 MCG tabletIndicati ons:Cramps, extremity TAKE ONE TABLET EVERY MORNING 90 tablet 1 02/21/20 25 Active famotidine (Pepcid) 40 MG tablet [...] 17, 2025. 168 tablet 07/17/20 25 Active magnesium oxide (Mag-Ox) 400 MG tabletIndicati ons:Cramp and spasm TAKE ONE TABLET EVERY NIGHT AT BEDTIME 90 tablet 1 07/29/20 25 Active doxazosin (Cardura) 8 MG tablet TAKE ONE TABLET EVERY NIGHT AT BEDTIME 90 tablet 1 07/29/20 25 Active doxazosin (Cardura) 8 MG tablet TAKE ONE TABLET EVERY NIGHT AT BEDTIME 90 tablet 1 12/13/19 25 025 Discontinued(Re order (will not trigger notification to Pharmacy)) magnesium oxide (Mag-Ox) 400 MG tabletIndicati ons:Cramp and spasm TAKE ONE TABLET EVERY NIGHT AT BEDTIME 90 tablet 1 02/26/20 25 025 Discontinued traMADol (Ultram) 50 MG tabletIndicati [...] Comment: No osteoporosis on DEXA 12/07 No stonesSep 12, 2008 Entered By: TAWANDA JASSO Comment: increase calcium [...] Diastolic dysfunction 12/28/2022 Malignant tumor of prostate (CMS/HCC) 12/28/2022 Mild aortic valve stenosis 12/28/2022 Assessment [...] Encounters Date Type Department Care Team Description 07/29/2025 Refill [facility] MED & PEDS [address] [place] [address] Rocio Valera MD Cramp and spasm 07/29/2025 Refill [facility] MED & PEDS [address] [place] [address] Bassem Lou MD 07/24/2025 Orders Only GENERIC EXTERNAL DATA DEPARTMENT Provider, Generic External Data 07/14/2025 Refill [facility] PEDS [address] [place] [address] Ana Phillip MD Chronic pain syndrome 07/14/2025 Telephone [facility] PEDS [address] [place] [address] Ana Phillip MD Med Refill 06/17/2025 Refill [facility] PEDS [address] [place] [address] Ana Phillip MD Chronic pain syndrome 05/13/2025 Telephone [facility] MEDICINE [address] [place] [address] Ana Phillip MD Durable Medical Equipment 05/13/2025 Refill [facility] MED[facility] [address] [place] [address] Ana Phillip MD Chronic pain syndrome 05/07/2025 Refill [facility]S [address] [place] [address] Ana Phillip MD 05/05/2025 Refill [facility] P[facility] [address] [place], [place] [phone] Ana Phillip MD from Last 3 Months [...] - 1-dose 75+ series) 2013 COVID-19 Vaccine (4 - season) 2025 10/15/2021, 01/01/2021, 12/11/2020 Influenza Vaccine [...] 9:23 AM EST) No Sienna Vaca, [place] Procedures Procedure Name Priority Date/Time Associated Diagnosis Comments PSA, TOTAL Routine 07/24/2025 9:58 AM EDT from Last 3 Months Results * PSA,Total (07/24/2025 9:58 AM EDT) Prostate Specific Antigen 0.91 <0.05 - 4.0 ng/mL [facility] Comment:PSA methodology: Nadia Dow i ChemiluminescentMicroparticle Immunoassay (CMIA) 07/24/2025 9:58 AM EDT 07/24/2025 9:58 AM EDT us Generic External Data Provider LAB BLOOD ORDERAB LES Final Result [facility] [address] [place] [address] [phone] from Last 3 Months Insurance [facility] OPT[employer] (HMO D-SNP) FUNMI GARZA [id number] Care Teams Controller Mechanic Relationship Specialty Start Date End Date Ana Phillip MD [address] [place] [address] PCP - General Family Medicine 09/01/21
--- OUTSIDE RECORDS SUMMARY | 2025-08-01 08:54 | XMS_ITS | Encounter Summary ---
Author Organization [employer] Address [address] [facility] 7t [place] [address] Care Team Providers Care Ocular Care Aide Name Role Phone Ana Phillip MD Primary Care Provider [phone] Reason for Visit * Reason Onset Date Comments Med Refill 03/17/2025 Encounter Details Date Type Department Care Team ([facility] st Contact Info) Description 03/17/2025 Telephone [facility] MEDICINE [address] [place] [address] Ana Phillip MD [address] [place] [address] Med Refill Social History Tobacco Use Types [...] documented as of this encounter Care Teams Ocular Care Aide Relationship Specialty Start Date End Date Ana Phillip MD [address] [place] [address] PCP - General Family Medicine 09/01/21 documented as of this encounter
--- OUTSIDE RECORDS SUMMARY | 2025-08-01 08:54 | XMS_ITS | Encounter Summary ---
Author Organization [employer] Address [address] [facility] 7t [place] [address] Care Team Providers Care Hospital Account Liaison Name Role Phone Ana Phillip MD Primary Care Provider [phone] Reason for Visit * Reason Onset Date Comments Med Refill 12/25/2023 Encounter Details Date Type Department Care Team ([facility] st Contact Info) Description 12/25/2023 Telephone [facility] MEDICINE [address] [place] [address] Ana Phillip MD [address] [place] [address] Med Refill Social History Tobacco Use Types [...] 50 MG tablet To be sent to: [facility] - [place], [place] - [facility] [address] documented in this encounter Plan of Treatment Not on file documented as of this encounter Visit Diagnoses Diagnosis Chronic pain syndrome documented in this encounter Additional Health Concerns Assessment Noted Time PHQ-9 Depression Total Score: 7 12/14/19 24 8:52 AM EST documented as of this encounter Care Teams Hospital Account Liaison Relationship Specialty Start Date End Date Ana Phillip MD [address] [place] [address] PCP - General Family Medicine 09/01/21 documented as of this encounter
--- OUTSIDE RECORDS SUMMARY | 2025-08-01 08:54 | XMS_ITS | Encounter Summary ---
Author Organization [employer] Address [address] [facility] 7t [place] [address] Care Team Providers Care Lithoduplicator Operator Name Role Phone Ana Phillip MD Primary Care Provider [phone] Reason for Visit * Reason Onset Date Comments Med Refill 09/23/2024 Encounter Details Date Type Department Care Team ([facility] st Contact Info) Description 09/23/2024 Telephone [facility] MEDICINE [address] [place] [address] Ana Phillip MD [address] [place] [address] Med Refill Social History Tobacco Use Types [...] 50 MG tablet To be sent to: [facility] - [place], [place] - [address] documented in [...] documented as of this encounter Care Teams Lithoduplicator Operator Relationship Specialty Start Date End Date Ana Phillip MD [address] [place] [address] PCP - General Family Medicine 09/01/21 documented as of this encounter
--- OUTSIDE RECORDS SUMMARY | 2025-08-01 08:54 | XMS_ITS | Encounter Summary ---
Author Organization [employer] Address [address] [facility] 7t [place] [address] Care Team Providers Care Transition Program Manager Name Role Phone Ana Phillip MD Primary Care Provider [phone] Reason for Visit * Reason Onset Date Comments Durable Medical Equipment 02/28/2024 Encounter Details Date Type Department Care Team ([facility] st Contact Info) Description 02/28/2024 Telephone [facility] MEDICINE [address] [place] [address] Ana Phillip MD [address] [place] [address] Durable Medical Equipment Social History Tobacco Use [...] documented as of this encounter Care Teams Transition Program Manager Relationship Specialty Start Date End Date Ana Phillip MD [address] [place] [address] PCP - General Family Medicine 09/01/21 documented as of this encounter
--- OUTSIDE RECORDS SUMMARY | 2025-08-01 08:54 | XMS_ITS | Encounter Summary ---
Author Organization [employer] Address [address] [facility] 7t [place] [address] Care Team Providers Care Process Owner Name Role Phone Ana Phillip MD Primary Care Provider [phone] Reason for Visit * Reason Comments Med Refill Encounter Details Date Type Department Care Team ([facility] st Contact Info) Description 09/30/2023 Refill [facility] MED & PEDS [address] [place], [place] [phone] Ana Phillip MD [address] [place] [address] Social History Tobacco Use Types Packs/Day Years [...] documented as of this encounter Care Teams Process Owner Relationship Specialty Start Date End Date Ana Phillip MD [address] [place] [address] PCP - General Family Medicine 09/01/21 documented as of this encounter
--- OUTSIDE RECORDS SUMMARY | 2025-08-01 08:54 | XMS_ITS | Encounter Summary ---
Author Organization [employer] Address [address] [facility] 7t [place] [address] Care Team Providers Care Precinct I Police Sergeant Name Role Phone Ana Phillip MD Primary Care Provider [phone] Reason for Visit * Reason Comments Med Refill Encounter Details Date Type Department Care Team (Late st Contact Info) Description 04/15/2024 Refill [facility] MED & PEDS [address] [place], [place] [phone] Ana Phillip MD [address] [place] [address] Chronic pain syndrome Social History Tobacco Use [...] documented as of this encounter Care Teams Precinct I Police Sergeant Relationship Specialty Start Date End Date Ana Phillip MD [address] [place] [address] PCP - General Family Medicine 09/01/21 documented as of this encounter
--- OUTSIDE RECORDS SUMMARY | 2025-08-01 08:54 | XMS_ITS | Encounter Summary ---
Author Organization [employer] Address [address] [facility] 7t [place] [address] Care Team Providers Care Desk Monitor Name Role Phone Ana Phillip MD Primary Care Provider [phone] Reason for Visit * Reason Onset Date Comments Durable Medical Equipment 12/23/2022 Encounter Details Date Type Department Care Team ([facility] st Contact Info) Description 12/23/2022 Telephone [facility] MEDICINE [address] [place] [address] Ana Phillip MD [address] [place] [address] Durable Medical Equipment Social History Tobacco Use [...] was send to be sign. Pt provided automobile and property underwriter with fax # [phone] documented in this encounter Plan of Treatment Not on file documented as of this encounter Visit Diagnoses Not on filedocumented in this encounter Care Teams Desk Monitor Relationship Specialty Start Date End Date Ana Phillip MD [address] [place] [id number] PCP - General Family Medicine 09/01/21 documented as of this encounter
--- OUTSIDE RECORDS SUMMARY | 2025-08-01 08:54 | XMS_ITS | Encounter Summary ---
Author Organization [employer] Address [address] [facility] [address] [place] [address] Care Team Providers Care Upper Cutter Out Name Role Phone Ana Phillip MD Primary Care Provider [phone] Reason for Visit * Reason Onset Date Comments Nurse Triage 12/10/2024 Encounter Details Date Type Department Care Team ([facility] st Contact Info) Description 12/10/2024 Telephone [facility] MEDICINE [address] [place] [address] Ana Phillip MD [address] [place] [address] Nurse Triage Social History Tobacco Use Types [...] 12/10/2024 3:45 PM EST Triage call with [facility] Financial Management ID [id number], Stefano. Pt daughter Suze answered and reports will speak gambian for Pt. Arabic Linguist remains. Pt has beenhaving some intermittent dizziness [...] ambulating. Pt had been offered apt in [facility] but, requests to be seen by provider in [facility] knowing that PCP is not in [...] caller accepted this outcome. Contact pt at [phone] documented in this encounter Plan of Treatment [...] documented as of this encounter Care Teams Upper Cutter Out Relationship Specialty Start Date End Date Ana Phillip MD [address] [place] [id number] PCP - General Family Medicine 09/01/21 documented as of this encounter
--- OUTSIDE RECORDS SUMMARY | 2025-08-01 08:55 | XMS_ITS | Encounter Summary ---
Author Organization [employer] Address [address] [facility] [address] [place] [address] Care Team Providers Care System Integration Engineer Name Role Phone Ana Phillip MD Primary Care Provider [phone] Reason for Visit * Reason Onset Date Comments Med Refill 02/14/2025 Encounter Details Date Type Department Care Team ([facility] st Contact Info) Description 02/14/2025 Telephone [facility] MEDICINE [address] [place] [address] Ana Phillip MD [address] [place] [address] Med Refill Social History Tobacco Use Types [...] 50 MG tablet To be sent to: [facility] - [place], [place] - [facility] [address] documented in this encounter [...] documented as of this encounter Care Teams System Integration Engineer Relationship Specialty Start Date End Date Ana Phillip MD [address] [place] [address] PCP - General Family Medicine 09/01/21 documented as of this encounter
--- OUTSIDE RECORDS SUMMARY | 2025-08-01 08:55 | XMS_ITS | Encounter Summary ---
Author Organization [employer] Address [address] [facility] [address]t [place] [address] Care Team Providers Care Fire Suppression Captain Name Role Phone Ana Phillip MD Primary Care Provider [phone] Reason for Visit * Reason Comments Med Refill Encounter Details Date Type Department Care Team ([facility] st Contact Info) Description 07/29/2025 Refill [facility]S [address] [place], [place] [phone] Rocio Valera MD [address] [place] [address] Cramp and spasm Social History Tobacco Use Types Packs/Day Years [...] as of this encounter Visit Diagnoses Diagnosis Cramp and spasm documented in this encounter Additional Health Concerns Assessment Noted Time PHQ-9 Depression Total Score: 1 12/26/19 25 9:28 AM EST documented as of this encounter Care Teams Fire Suppression Captain Relationship Specialty Start Date End Date Ana Phillip MD [address] [place] [address] PCP - General Family Medicine 09/01/21 documented as of this encounter
--- OUTSIDE RECORDS SUMMARY | 2025-08-01 08:55 | XMS_ITS | Encounter Summary ---
Author Organization [employer] Address [address] [facility] [address] [place] [address] Care Team Providers Care Hha Name Role Phone Ana Phillip MD Primary Care Provider [phone] Reason for Visit * Reason Comments Med Refill Encounter Details Date Type Department Care Team (Late st Contact Info) Description 05/01/2023 Refill [facility] MED & PEDS [address] [place], [place] [phone] Ana Phillip MD [address] [place], [place] [phone] Other chronic pain Social History Tobacco Use [...] documented as of this encounter Care Teams Hha Relationship Specialty Start Date End Date Ana Phillip MD [address] [place] [address] PCP - General Family Medicine 09/01/21 documented as of this encounter
--- OUTSIDE RECORDS SUMMARY | 2025-08-01 08:55 | XMS_ITS | Encounter Summary ---
Author Organization [email or web address] Address [address] [facility] [address] [place] [address] Care Team Providers Care Dental Service Technician Name Role Phone Ana Phillip MD Primary Care Provider [phone] Reason for Visit * Reason Comments Med Refill Encounter Details Date Type Department Care Team (Late st Contact Info) Description 07/29/2025 Refill [facility] MED & PEDS [address] [place], [place] [phone] Bassem Lou MD [address] [place] [address] Social History Tobacco Use Types Packs/Day Years [...] documented as of this encounter Care Teams Dental Service Technician Relationship Specialty Start Date End Date Ana Phillip MD [address] [place] [address] PCP - General Family Medicine 09/01/21 documented as of this encounter
== END 2025-08-01 08:59 | disposition home or self-care (01) ==
LOC: HO.HUSH 08:34
PROVIDERS: PCP Family Medicine; Visit Provider Urology
DX: C61 Malignant neoplasm of prostate (principal); N40.1 Benign prostatic hyperplasia with lower urinary tract symptoms; R35.1 Nocturia
CPT/HCPCS: 99213; G2211

== ENCOUNTER → 2025-08-01 08:33 | Outpatient (BNVA) | payer OTHER, SELFPAY | PROVIDERS: PCP Family Medicine; Visit Provider Urology | DX: R35.1 Nocturia (principal); N40.1 Benign prostatic hyperplasia with lower urinary tract symptoms; C61 Malignant neoplasm of prostate | CPT/HCPCS: 99212 ==